=== PATIENT | male | born 1935 | race Caucasian/White ===

== ENCOUNTER 2018-04-26 09:11 | Inpatient (IN) ==
--- NOTE | 2018-04-26 09:25 | Emergency Department Report ---
General Adult HPI - General Chief complaint: Medical Emergency Stated complaint: blood in stools Time Seen by Provider: 04/26/18 09:23 Source: patient Mode of arrival: ambulatory Limitations: no limitations - History of Present Illness HPI narrative: 83 M presents to the emergency department with a chief complaint of dark tarry stools. Patient noted onset of dark tarry stools on Saturday of this past week. He denies any current pain or discomfort. He does not feeling slightly lightheaded. Patient was at home when his symptoms began. Symptoms have been persistent in nature since onset. No other complaints or associated symptoms at this time. Patient is unsure of the date of his last colonoscopy/EGD. He does note that he is anticoagulated on Coumadin for atrial fibrillation. - Related Data Home Medications Medication Instructions Recorded Confirmed Warfarin Sodium 3 mg PO DAILY #0 05/09/16 04/26/18 aspirin 81 mg tablet,delayed 81 mg PO DAILY tab 06/05/17 04/26/18 release Bisoprolol [Zebeta] 5 mg PO HS 04/26/18 04/26/18 Docusate Sodium [Stool Softener] 200 mg PO PRN 04/26/18 04/26/18 Lactobacillus Acidophilus 1 cap PO DAILY 04/26/18 04/26/18 [Probiotic] PEG 3350 17gm PACKET [Miralax] 17 gm PO PRN 04/26/18 04/26/18 Allergies Allergy/AdvReac Type Severity Reaction Status Date / Time Penicillins Allergy Intermediate SWELLING Verified 04/26/18 10:06 alcohol AdvReac Unknown RECOVERING Verified 04/26/18 10:06 ALCOHOLIC Review of Systems Constitutional: Denies: fever, chills Eyes: Denies: eye pain, vision change ENT: Denies: ear pain, throat pain Cardiovascular: Denies: chest pain, palpitations Respiratory: Denies: cough, dyspnea Gastrointestinal: Denies: abdominal pain, nausea, vomiting, diarrhea Genitourinary: Denies: urgency, dysuria Musculoskeletal: Denies: back pain, arthralgia Integumentary: Denies: erythema, rash Neurological: Denies: headache, numbness, paresthesias Psychiatric: Denies: anxiety, depression Endocrine: Denies: polydipsia, polyuria Hematological/Lymphatic: Denies: easy bruising, lymphadenopathy Allergic/Immunologic: Denies: facial swelling, urticaria PFSH Patient Stated Medical History Cataracts Yes Glaucoma Yes Cardiac Arrhythmia Yes: a-fib Congestive Heart Failure Yes Hypertension Yes Valvular Heart Disease Yes: AORTIC STENOSIS, MITRAL VALVE PROLAPSE Sleep Apnea Yes Other GI Yes: CONSTIPATION/DIARRHEA Clotting Problems Yes: ON COUMADIN Surgical History: heart surgery. colonoscopy Family History: Family History (Last Updated 06/05/17 @ 11:59 by Laurel Floyd [facility]) Father Pneumonia Mother Stroke Sister No known health problems Brother Heart disease - Social History Smoking status: Never smoker Substance use type: does not use Alcohol intake frequency: former alcohol drinker Physical Exam - Limitations Limitations: no limitations - General General appearance: alert, in no apparent distress - Normal Exams: Head:: Normocephalic without trauma Eyes:: Pupils are PERRLA w/ EOMI, No scleral icterus, irritation, or foreign bodies noted ENMT:: No facial trauma, nasal exudates, pharyngeal erythema, or exudates are noted Dental: No fractured, loose, or missing teeth noted Neck:: Full range of motion, without adenopathy, JVD, bruits or thyromegaly Chest/Respirations:: Clear all day, with good airflow, and symmetry bilaterally Cardiovascular:: Regular rate and rhythm, without murmur or gallop, Pulses 2+ all extremities, capillary refill, <2 seconds all extremities Abdomen:: Bowel sounds positive, soft, non-tender, non-distended, no hepatosplenomegaly, masses or bruits noted Lymphatic:: No lymphadenopathy, or lymphedema noted Musculoskeletal:: No tenderness, or deformity noted, good range of motion, all extremities Integumentary:: No rashes, hives, or bruising noted, hair and nails, without abnormality Neurological:: Patient is alert, and oriented, cranial nerves, motor/sensory/ cerebellar, exams w/o gross deficits, to observation Psychiatric:: Patient exhibits, appropriate attention, emotion and affect Course Vital Signs Temperature 98.4 F 04/26/18 09:13 Pulse Rate 101 H 04/26/18 09:13 Respiratory Rate 20 04/26/18 09:13 Blood Pressure 149/79 H 04/26/18 09:13 Pulse Oximetry 98 04/26/18 09:13 Temperature 97.6 F 04/26/18 16:26 Pulse Rate 74 04/26/18 19:00 Respiratory Rate 12 04/26/18 16:26 Blood Pressure 127/66 04/26/18 16:26 Pulse Oximetry 98 04/26/18 16:26 Medical Decision Making - [facility] Narrative Medical decision making narrative: Patient is subtherapeutic on his INR. Labs were discussed in detail with the patient and questions are answered. Patient is given 500 mL normal saline intravenously times one. He is given Protonix 40 mg IV times one. Due to the patient being anticoagulated on Coumadin and upper GI bleeding he will be admitted to the service of the hospitalist for further evaluation and treatment. Patient is in agreement with the current plan of management. Patient is discussed with the hospitalist Dr. Mcbride and will be admitted to his service in improved condition. No further orders from accepting physician who is in agreement with the current plan of management. - Differential Diagnosis upper GI bleed, lower GI bleed, metabolic disorder, anemia - Lab Data Result diagrams: 04/26/18 15:41 04/26/18 09:54 Lab Results 04/26/18 04/26/18 04/26/18 Range/Units 09:49 09:54 09:54 WBC 8.3 (4.5-11.0) T/MM3 RBC 3.39 L (4.50-5.90) M/MM3 Hgb 10.8 L (13.5-17.5) GM/DL Hct 32.8 L (41-53) % MCV 96.8 (80-100) UM3 MCH 31.9 (26-34) UUG MCHC 32.9 (31-37) GM/DL RDW Std Deviation 46.7 (36.9-50.2) FL Plt Count 166 (130-400) T/MM3 MPV 10.7 (9.4-12.4) UM3 Immature Gran % (Auto) 0.4 (0.0-0.5) % Neut % (Auto) 70.0 H (33-66) % Lymph % (Auto) 20.6 L (23-45) % Edwards % (Auto) 6.4 (0-9.0) % Eos % (Auto) 2.2 (0-4) % Baso % (Auto) 0.4 (0-2) % Neut # (Auto) 5.8 (1.8-7.7) T/MM3 Lymph # (Auto) 1.7 (1-4.8) T/MM3 Edwards # (Auto) 0.5 (0-0.8) T/MM3 Eos # (Auto) 0.2 (0-0.5) T/MM3 Baso # (Auto) 0.0 (0-0.2) T/MM3 Abs Immat Gran (auto) 0.03 (0.00-0.03) T/MM3 INR (0.92-1.18) APTT (24-36) SEC Turbidity < 20 (0-20) Sodium 142 (136-146) MEQ/L Potassium 4.1 (3.6-5) MEQ/L Chloride 109 H (98-107) MEQ/L Carbon Dioxide 24 (22-30) MEQ/L Anion Gap 9 (5-15) meq/L BUN 18.0 (9-20) MG/DL Creatinine 0.7 L (0.8-1.5) mg/dL Estimated Creat Clear 69 (>50) mL/min GFR Calculation 107 (>60) mL/min BUN/Creatinine Ratio 26 (6-26) RATIO Glucose 95 (75-110) MG/DL Calculated Osmolality 275 (261-280) MOSM/KG Calcium 9.4 (8.4-10.2) MG/DL Total Bilirubin 0.40 (0.20-1.30) MG/DL Icterus Index < 2 (0-7) AST 20 (17-59) U/L ALT 15 (1-50) U/L Alkaline Phosphatase 52 (38-126) U/L Troponin I < 0.012 (0-0.12) ng/ml Total Protein 6.7 (6.3-8.2) g/dL Albumin 4.0 (3.5-5.0) g/dL Globulin 2.7 (2.4-3.6) G/DL Albumin/Globulin Ratio 1.5 (1.1-2.2) RATIO Lipase 38 (23-300) U/L Specimen Hemolysis < 15 (0-25) Ur Collection Type Urine, void-cc/notcc Urine Color Yellow (YELLOW) Urine Clarity Clear Urine pH 5.5 (5.0-8.0) Ur Specific [place] 1.015 (1.015-1.025) Urine Protein Negative (NEGATIVE) Urine Glucose (UA) Negative (NEGATIVE) Urine Ketones Negative (NEGATIVE) Urine Occult Blood Trace-intact (NEGATIVE) Urine Nitrate Negative (NEGATIVE) Urine Bilirubin Negative (NEGATIVE) Urine Urobilinogen 0.2 (NORMAL) EU/DL Ur Leukocyte Esterase Negative (NEGATIVE) Urinalysis Comment Microscopic not ind. Blood Type Antibody Screen 04/26/18 04/26/18 Range/Units 09:54 09:54 WBC (4.5-11.0) T/MM3 RBC (4.50-5.90) M/MM3 Hgb (13.5-17.5) GM/DL Hct (41-53) % MCV (80-100) UM3 MCH (26-34) UUG MCHC (31-37) GM/DL RDW Std Deviation (36.9-50.2) FL Plt Count (130-400) T/MM3 MPV (9.4-12.4) UM3 Immature Gran % (Auto) (0.0-0.5) % Neut % (Auto) (33-66) % Lymph % (Auto) (23-45) % Edwards % (Auto) (0-9.0) % Eos % (Auto) (0-4) % Baso % (Auto) (0-2) % Neut # (Auto) (1.8-7.7) T/MM3 Lymph # (Auto) (1-4.8) T/MM3 Edwards # (Auto) (0-0.8) T/MM3 Eos # (Auto) (0-0.5) T/MM3 Baso # (Auto) (0-0.2) T/MM3 Abs Immat Gran (auto) (0.00-0.03) T/MM3 INR 1.92 H (0.92-1.18) APTT 34.3 (24-36) SEC Turbidity (0-20) Sodium (136-146) MEQ/L Potassium (3.6-5) MEQ/L Chloride (98-107) MEQ/L Carbon Dioxide (22-30) MEQ/L Anion Gap (5-15) meq/L BUN (9-20) MG/DL Creatinine (0.8-1.5) mg/dL Estimated Creat Clear (>50) mL/min GFR Calculation (>60) mL/min BUN/Creatinine Ratio (6-26) RATIO Glucose (75-110) MG/DL Calculated Osmolality (261-280) MOSM/KG Calcium (8.4-10.2) MG/DL Total Bilirubin (0.20-1.30) MG/DL Icterus Index (0-7) AST (17-59) U/L ALT (1-50) U/L Alkaline Phosphatase (38-126) U/L Troponin I (0-0.12) ng/ml Total Protein (6.3-8.2) g/dL Albumin (3.5-5.0) g/dL Globulin (2.4-3.6) G/DL Albumin/Globulin Ratio (1.1-2.2) RATIO Lipase (23-300) U/L Specimen Hemolysis (0-25) Ur Collection Type Urine Color (YELLOW) Urine Clarity Urine pH (5.0-8.0) Ur Specific [place] (1.015-1.025) Urine Protein (NEGATIVE) Urine Glucose (UA) (NEGATIVE) Urine Ketones (NEGATIVE) Urine Occult Blood (NEGATIVE) Urine Nitrate (NEGATIVE) Urine Bilirubin (NEGATIVE) Urine Urobilinogen (NORMAL) EU/DL Ur Leukocyte Esterase (NEGATIVE) Urinalysis Comment Blood Type O Positive Antibody Screen Negative - EKG Data EKG #1 EKG results narrative: Atrial fibrillation. 91 bpm. No STEMI. Disposition Clinical Impression: GI bleed Qualifiers: GI bleed type/associated pathology: unspecified gastrointestinal hemorrhage type Qualified Code(s): K92.2 - Gastrointestinal hemorrhage, unspecified Disposition: 02 To [facility] Acute Care Condition: Stable Time of Disposition: 10:32 (Admit. Dr. Mcbride. ) - Seen By: physician
--- OUTSIDE RECORDS SUMMARY | 2018-04-26 09:34 | External Medical Summary | Referral Summary ---
:1935 Author Organization [facility] Address [address] [place] [address] Care Team Providers Name Role Phone Angelina Giron Primary Care Physician Encounter [facility] [id number] Date(s): 11/27/16 - 11/27/16 [facility] [address] [place] [address] Discharge Disposition: 01-Home or Self Care Attending Physician: Fracisco Mclean MD Vital Signs No data available for this section Problem List Condition Effective Dates Status Health Status Informant Acute pain(Confirmed) Active PAF (paroxysmal atrial Active fibrillation)(Confirmed) Aortic stenosis(Confirmed) Active At risk of pressure sore(Confirmed) Active Glaucoma(Confirmed) Active Hypertension(Confirmed) Active Obesity(Confirmed) Active patient HECTOR (obstructive sleep Active apnea)(Confirmed) Degenerative arthritis(Confirmed) Active Tissue perfusion Active alteration(Confirmed)1 1Problem added automatically by system based on initiation of Tissue Perfusion Cerebral Plan of Care Allergies, Adverse Reactions, Alerts Substance Reaction Severity Status penicillins Active Medications aspirin 81 mg oral tablet 81 mg 1 tabs, Oral, Daily, # 30 tabs, 0 Refill(s) Start Date: 10/31/16 Status: Orderedbisoprolol 5 mg, Oral, Daily, 0 Refill(s) Start Date: 10/09/16 Status: Orderedfurosemide 20 mg oral tablet 20 mg 1 tabs, Oral, Daily, # 30 tabs, 5 Refill(s) Start Date: 11/02/16 Status: OrderedPlavix 75 mg oral tablet 75 mg 1 tabs, Oral, Daily, # 30 tabs, 5 Refill(s) Start Date: 11/02/16 Status: Orderedsimvastatin 10 mg oral tablet 10 mg 1 tabs, Oral, Bedtime (once a day), # 30 tabs, 5 Refill(s) Start Date: 11/02/16 Status: Orderedwarfarin 3 mg, Oral, Daily, 0 Refill(s) Start Date: 10/09/16 Status: Orderedwarfarin 6 mg, Oral, Mon/We/Fr, 0 Refill(s) Start Date: 10/09/16 Status: Ordered Results No data available for this section Immunizations No data available for this section Procedures Procedure Date Related Diagnosis Body Site Replacement Aortic Valve Transcatheter 10/31/16 Transfemoral Approach1 Transesophageal echocardiogram2 07/17/16 Cardiac catheterization 05/09/16 Cataract extraction Colonoscopy History of colon resection 1auto-populated from documented surgical [id number] 45-50%, mild MR, mild to mod w/ ZULEIKA 1.2-1.3 Social History Social History Type Response Smoking Status Former smoker; Number of years: 49 Assessment and Plan Extracted from: Title: Office Visit Note Author: Fracisco Mclean MD Date: 11/27/16 Assessment/Plan 1. 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 Atrial fibrillation. On Warfarin therapy as directed by primary care physician. 3. Nonischemic cardiomyopathy and systolic congestive heart failure -LVEF 50% per 2D Echo Sep 2016 -Heart catheterization in April 2016 did not reveal any evidence of obstructive coronary artery disease. 4. Hypertension: controlled 5. History of tobacco abuse, quitting in 1969. 6. Obstructive sleep apnea. Noncompliant with CPAP use. 7. Thyroid goiter per CTA chest/thyroid US Sep 2016 will refer to steven again from clinic
--- OUTSIDE RECORDS SUMMARY | 2018-04-26 09:34 | External Medical Summary | Referral Summary ---
:1935 Author Organization [facility] Address [address] [place] [address] Care Team Providers Name Role Phone Bree Angelina Primary Care Physician Encounter [facility] [id number] Date(s): 11/22/16 - 11/22/16 [facility] [address] [place] [address] [phone] Discharge Disposition: 01-Home or Self Care Attending Physician: Fracisco Mclean MD Admitting Physician: Fracisco Mclean MD Vital Signs Most recent to oldest [Reference Range]: 1 Peripheral Pulse Rate [60-100 bpm] 82 bpm (11/22/16 1:06 PM) Respiratory Rate [14-20 br/min] 16 br/min (11/22/16 1:06 PM) Blood Pressure [90-140/60-90 mmHg] 135/69 mmHg (11/22/16 1:06 PM) SpO2 96 % (11/22/16 1:06 PM) Problem List Condition Effective Dates Status Health [...] Date: 10/09/16 Status: Orderedwarfarin 6 mg, Oral, Sat//, 0 Refill(s) Start Date: 10/09/16 Status: Ordered Results Hematology Most recent to oldest [Reference Range]: 1 WBC [4.8-10.8 10*3/uL] 7.0 10*3/uL (11/22/16 1:36 PM) RBC [4.60-6.20] 4.18 *LOW* (11/22/16 1:36 PM) Hgb [14.0-18.0 gm/dL] 13.4 gm/dL *LOW* (11/22/16 1:36 PM) Hct [42.0-52.0 %] 40.2 % *LOW* (11/22/16 1:36 PM) MCV [82.0-99.0 fL] 96.2 fL (11/22/16 1:36 PM) MCH [27.0-32.0 pg] 32.1 pg *HI* (11/22/16 1:36 PM) MCHC [32.0-36.0 gm/dL] 33.3 gm/dL (11/22/16 1:36 PM) RDW [11.5-14.5 %] 13.6 % (11/22/16 1:36 PM) Platelet [150-400 10*3/uL] 163 10*3/uL (11/22/16 1:36 PM) MPV [9.4-12.3 fL] 10.7 fL (11/22/16 1:36 PM) Coagulation Most recent to oldest [Reference Range]: 1 INR [0.9-1.2] 2.8 *HI* (11/22/16 1:36 PM) Chemistry Most recent to oldest [Reference Range]: 1 Sodium Lvl [136-144 mEq/L] 138 mEq/L (11/22/16 1:36 PM) Potassium Lvl [3.6-5.1 mEq/L] 4.6 mEq/L (11/22/16 1:36 PM) Chloride [99-109 mEq/L] 108 mEq/L (11/22/16 1:36 PM) CO2 [22-32 mEq/L] 23 mEq/L (11/22/16 1:36 PM) AGAP [3-20] 7 (11/22/16 1:36 PM) BUN [4-20 mg/dL] 24 mg/dL *HI* (11/22/16 1:36 PM) Glucose Lvl [70-100 mg/dL] 95 mg/dL (11/22/16 1:36 PM) Creatinine Lvl [0.64-1.27 mg/dL] 0.76 mg/dL (11/22/16 1:36 PM) eGFR [>60] >60 1 (11/22/16 1:36 PM) Calcium Lvl [8.6-10.0 mg/dL] 9.9 mg/dL (11/22/16 1:36 PM) 1Result Comment: Multiply eGFR results by 1.21 for race. Immunizations No data available for this section Procedures Procedure Date Related Diagnosis Body Site Replacement Aortic Valve Transcatheter 10/31/16 Transfemoral Approach1 Transesophageal echocardiogram2 07/17/16 Cardiac catheterization 05/09/16 Cataract extraction Colonoscopy History of colon resection 1auto-populated from documented surgical orpr2IX 45-50%, mild MR, mild to mod w/ ZULEIKA 1.2-1.3 Social History Social History Type Response Smoking Status Former smoker; Number of years: 49 Assessment and Plan Extracted from: Title: kccq-12 Author: Julia Torres RN Date: 11/22/16 [place] Cardiomyopathy Questionnaire (KCCQ-12) The following questions refer to your heart failure and how it may affect your life. Please read and complete the following questions. There are no right or wrong answers. Please nani the answer that best applies to you. 1. Heart failure affects different people in different ways. Some feel shortness of breath while others feel fatigue. Please indicate how much you are limited by heart failure (shortness of breath or fa tigue) in your ability to do the following activities over the past 2 weeks. Activity Extremely Limited Quite a bit Limited Moderately Limited Slightly Limited Not at all Limited Limited for other reasons or did not do the activity (1) (2) (3) (4) (5) (6) a. Showering/bathing [ ] [ ] [ ] [ ] [ x ] [ ] b. Walking 1 block on level ground [ ] [ ] [ ] [ ] [ x ] [ ] c. Hurrying or jogging (as if to catch a bus) [ ] [ ] [ x] [ ] [ ] [ ] 2. Over the past 2 weeks, how many times did you have swelling in your feet, ankles or legs when you woke up in the morning? Every morning 3 or more times per week but not every day 1-2 times per week Less than once a week Never over the past 2 weeks (1) (2) (3) (4) (5) [ ] [ ] [ ] [ ] [ x] 3. Over the past 2 weeks, on average, how many times has fatigue limited your ability to do what you wanted? All of the time Several times per day At least once a day 3 or more times per week but not every day 1-2 times per week Less than once a week Never over the past 2 weeks (1) (2) (3) (4) (5) (6) (7) [ ] [ ] [ ] [ ] [ ] [ ] [ x ] 4. Over the past 2 weeks, on average, how many times has shortness of breath limited your ability to do what you wanted? All of the time Several times per day At least once a day 3 or more times per week but not every day 1-2 times per week Less than once a week Never over the past 2 weeks (1) (2) (3) (4) (5) (6) (7) [ ] [ ] [ ] [ ] [ ] [ ] [ x ] 5. Over the past 2 weeks, on average, how many times have you been forced to sleep sitting up in a chair or with at least 3 pillows to prop you up because of shortness of breath? Every night 3 or more times per week but not every day 1-2 times per week Less than once a week Never over the past 2 weeks (1) (2) (3) (4) (5) [ ] [ ] [ ] [ ] [ x ] 6. Over the past 2 weeks, how much has your heart failure limited your enjoyment of life? It has extremely limited my enjoyment of life It has limited my enjoyment of life quite a bit It has moderately limited my enjoyment of life It has slightly limited my enjoyment of life It has not limited my enjoyment of life at all (1) (2) (3) (4) (5) [ ] [ ] [ x ] [ ] [ ] 7. If you had to spend the rest of your life with your heart failure the way it is right now, how would you feel about this? Not at all satisfied Mostly dissatisfied Somewhat satisfied Mostly satisfied Completely satisfied (1) (2) (3) (4) (5) [ ] [ ] [ ] [ x ] [ ] 8. How much does your heart failure affect your lifestyle? Please indicate how your heart failure may have limited your participation in the following activities over the past 2 weeks. Activity Severely Limited Limited quite a bit Moderately limited Slightly limited Did not limit at all Does not apply or did not do for other reasons (1) (2) (3) (4) (5) (6) a. Hobbies, recreational activities [ ] [ ] [ ] [ ] [ x] [ ] b. Working or doing set up mechanic automatic line [ ] [ ] [ ] [ ] [ x] [ ] c. Visiting family or friends out of your home [ ] [ ] [ ] [ ] [ x ] [ ]
--- OUTSIDE RECORDS SUMMARY | 2018-04-26 09:34 | External Medical Summary | Referral Summary ---
:1935 Author Organization [facility] Address [address] [place] [address] Care Team Providers Name Role Phone Angelina Giron Primary Care Physician Encounter [facility] [id number] Date(s): 10/30/17 - 10/30/17 [facility] [address] [place] [address] Discharge Disposition: 01-Home or Self Care Attending Physician: Fracisco Mclean MD Vital Signs Most recent to oldest [Reference Range]: 1 Peripheral Pulse Rate [60-100 bpm] 88 bpm (10/30/17 11:43 AM) Respiratory Rate [14-20 br/min] 16 br/min (10/30/17 11:43 AM) Blood Pressure [90-140/60-90 mmHg] 147/86 mmHg *HI* (10/30/17 11:43 AM) SpO2 97 % (10/30/17 11:43 AM) Problem List Condition Effective Dates Status Health [...] 0 Refill(s) Start Date: 10/09/16 Status: Orderedwarfarin 3 mg, Oral, Daily, 0 Refill(s) Start Date: 10/09/16 Status: Orderedwarfarin 6 mg, Oral, Mon/We/Fr, 0 Refill(s) Start Date: 10/09/16 Status: Ordered Results Hematology Most recent to oldest [Reference Range]: 1 WBC [4.8-10.8 10*3/uL] 6.1 10*3/uL (10/30/17 11:46 AM) RBC [4.60-6.20] 4.23 *LOW* (10/30/17 11:46 AM) Hgb [14.0-18.0 gm/dL] 13.4 gm/dL *LOW* (10/30/17 11:46 AM) Hct [42.0-52.0 %] 40.7 % *LOW* (10/30/17 11:46 AM) MCV [82.0-99.0 fL] 96.2 fL (10/30/17 11:46 AM) MCH [27.0-32.0 pg] 31.7 pg (10/30/17 11:46 AM) MCHC [32.0-36.0 gm/dL] 32.9 gm/dL (10/30/17 11:46 AM) RDW [11.5-14.5 %] 13.7 % (10/30/17 11:46 AM) Platelet [150-400 10*3/uL] 170 10*3/uL (10/30/17 11:46 AM) MPV [9.4-12.3 fL] 10.5 fL (10/30/17 11:46 AM) Chemistry Most recent to oldest [Reference Range]: 1 Sodium Lvl [136-144 mEq/L] 140 mEq/L (10/30/17 11:46 AM) Potassium Lvl [3.6-5.1 mEq/L] 4.6 mEq/L (10/30/17 11:46 AM) Chloride [99-109 mEq/L] 105 mEq/L (10/30/17 11:46 AM) CO2 [22-32 mEq/L] 26 mEq/L (10/30/17 11:46 AM) AGAP [3-20 mEq/L] 9 mEq/L (10/30/17 11:46 AM) BUN [4-20 mg/dL] 18 mg/dL (10/30/17 11:46 AM) Glucose Lvl [70-100 mg/dL] 103 mg/dL *HI* (10/30/17 11:46 AM) Creatinine Lvl [0.64-1.27 mg/dL] 0.80 mg/dL (10/30/17 11:46 AM) eGFR [>60 mL/min] >60 mL/min 1 (10/30/17 11:46 AM) Calcium Lvl [8.6-10.0 mg/dL] 9.7 mg/dL (10/30/17 11:46 AM) 1Result Comment: Multiply eGFR results by 1.21 for race. Procedures Procedure Date Related Diagnosis Body Site Status Replacement Aortic Valve Transcatheter 10/31/16 Completed Transfemoral Approach1 Transesophageal echocardiogram2 07/17/16 Completed Cardiac catheterization 05/09/16 Completed Cataract extraction Completed Colonoscopy Completed History of colon resection Completed 1auto-populated from documented surgical [id number] 45-50%, mild MR, mild to mod w/ [id number] 1.2-1.3 Social History Social History Type Response Smoking Status Former smoker; Number of years: 49; entered on: 10/30/16 Assessment and Plan Extracted from: Title: Office Visit Note Author: Fracisco Mclean MD Date: 10/30/17 1. 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 Showering/bathing O O O O Ox O b. Walking 1 block on level ground O Ox O O O O c. Hurrying or jogging (as if to catch a bus) O Ox O O O O 1 2 3 4 5 6 2. Over the past 2 weeks, how many times did you have swelling in your feet, ankles or legs when you woke up in the morning? Every morning 3 or more times per week but not every day 1-2 times per week Less than once a week Never over the past 2 weeks O O O O Ox 1 2 3 4 5 3. Over the past 2 weeks, on average, how many times has fatigue limited your ability to do what you wanted? All of the time Several times per day At least once a day 3 or more times per week but not every day 1-2 times per week Less than once a week Never over the past 2 weeks O O O O O O Ox 1 2 3 4 5 6 7 4. Over the past 2 weeks, on average, how many times has shortness of breath limited your ability to do what you wanted? All of the time Several times per day At least once a day 3 or more times per week but not every day 1-2 times per week Less than once a week Never over the past 2 weeks O Ox O O O O O 1 2 3 4 5 6 7 5. Over the past 2 weeks, on [...] week Never over the past 2 weeks O O O O Ox 1 2 3 4 5 6. Over the past 2 weeks, how much has your heart failure limited your enjoyment of life? It has extremely limited my enjoyment of life It has limited my enjoyment of life quite a bit It has moderately limited my enjoyment of life It has slightly limited my enjoyment of life It has not limited my enjoyment of life at all O O Ox O O 1 2 3 4 5 7. If you had to spend the rest of your life with your heart failure the way it is right now, how would you feel about this? Not at all satisfied Mostly dissatisfied Somewhat satisfied Mostly satisfied Completely satisfied O O Ox O O 1 2 3 4 5 8. How much does your heart failure affect your lifestyle? Please indicate how your heart failure may have limited your participation in the following activities over the past 2 weeks. Activity Severely Limited Limited quite a bit Moderately limited Slightly limited Did not limit at all Does not apply or did not do for other reasons a. 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 Visiting family or friends out of your home O O O Ox O O 1 2 3 4 5 6
--- OUTSIDE RECORDS SUMMARY | 2018-04-26 09:35 | External Medical Summary | Continuity of Care Document ---
:1935 Author Organization [facility] Allergies Active Description Code Type Severity Reaction Onset Reported/ Identified Relationship Clinical to Patient Status Yes PCN Drug N/A N/A Aller gy Yes alcohol AdvRe Unknown RECOVERIN 05/09/2016 ac G ALCOHOLIC Yes Aliphatic alcoh AdvRe Unknown RECOVERIN 05/09/2016 Alcohols ol ac G ALCOHOLIC Yes Penicillins Penic Aller I SWELLING 05/09/2016 illin gy s Yes penicillins NKMA N/A N/A 10/09/2016 Medications Medication Packaging Start Date Stop Date Route Dosage Sig 10/09/2016 Oral 3 mg 3 warfarin(warfar mg, Oral, Daily, in) 0 Refill(s) 10/09/2016 Oral 6 mg 6 warfarin(warfar mg, Oral, in) Mon//Fr, 0 Refill(s) 1,000 mL 10/16/2016 IV 100 Sodium Chloride 7 mL/hr, IV 0.9%(Sodium Chloride 0.9% 1,000 mL) 5 mL 10/16/2016 IV Push 5 mg 5 metoprolol(meto 7 mg=5 mL, IV prolol tartrate Push, Once 1 mg/mL injectable solution) 5 mL 10/16/2016 IV Push 5 mg 5 metoprolol(meto 7 mg=5 mL, IV prolol tartrate Push, Once 1 mg/mL injectable solution) 10/30/2016 Oral 30 mg 30 oseltamivir(Rolno 7 mg, Oral, BID, 0 iflu) Refill(s) 1 tabs 10/31/2016 Oral 81 mg 81 aspirin(aspirin mg=1 tabs, Oral, 81 mg oral Daily, 30 tabs, tablet) 0 Refill(s) 10/31/2016 IV Push 12.5 mg 12.5 fentaNYL(fentaN 7 mg, IV Push, YL) Once 1 mL 10/31/2016 IV Push 2 mg 2 morphine(morphi 7 mg=1 mL, IV ne) Push, q2hr, PRN: Pain Severe (7-10) 2 mL 10/31/2016 IV Push 4 mg 4 ondansetron(Zof 7 mg=2 mL, IV ran) Push, q6hr, PRN: Nausea or Vomiting 0.5 mL 10/31/2016 IV Push 25 mg 25 diphenhydrAMINE 7 mg=0.5 mL, IV (Benadryl) Push, q6hr, PRN: Rash 1,000 mL 10/31/2016 IV 75 Sodium Chloride 7 mL/hr, IV 0.9%(Sodium Chloride 0.9% 1,000 mL) 1 tabs 10/31/2016 Oral 75 mg 75 clopidogrel(Tarah 7 mg=1 tabs, Oral, vix) Daily 2 tabs 10/31/2016 Oral 650 mg 650 acetaminophen(a 7 mg=2 tabs, Oral, cetaminophen) q4hr, PRN: Pain Mild (1-3) 5 mL 10/31/2016 IV Push 0.5 mg 0.5 atropine(atropi 7 mg=5 mL, IV ne) Push, q12hr, PRN: Bradycardia 1 tabs 10/31/2016 Oral 81 mg 81 aspirin(aspirin 7 mg=1 tabs, Oral, ) Daily 1 tabs 11/01/2016 Oral 3 mg 3 warfarin(Coumad 7 mg=1 tabs, Oral, in) Once 1 tabs 11/02/2016 Oral 75 mg 75 clopidogrel(Tarah mg=1 tabs, Oral, vix 75 mg oral Daily, 30 tabs, tablet) 5 Refill(s) 1 tabs 11/02/2016 Oral 10 mg 10 simvastatin(sim mg=1 tabs, Oral, vastatin 10 mg Bedtime (once a oral tablet) day), 30 tabs, 5 Refill(s) 1 tabs 11/02/2016 Oral 20 mg 20 furosemide(furo mg=1 tabs, Oral, semide 20 mg Daily, 30 tabs, oral tablet) 5 Refill(s) Problems Date Dx Attending Type Code Diagnosis Diagnosed By Coded 10/11/2016 Fracisco Mclean Final G47.33 Obstructive sleep M apnea (adult) (pediatric) 10/11/2016 CaridadFracisco morales Final I11.0 Hypertensive heart M disease with heart failure 10/11/2016 CaridadFracisco morales Final I34.0 Nonrheumatic mitral M (valve) insufficiency 10/11/2016 CaridadFracisco morales Reason I35.0 Nonrheumatic aortic M (valve) stenosis 10/11/2016 CaridadFracisco morales Final I42.8 Other M cardiomyopathies 10/11/2016 CaridadFracisco morales Final I48.91 Unspecified atrial M fibrillation 10/11/2016 CaridadHector moralesem Final I50.20 Unspecified systolic M (congestive) heart failure 10/11/2016 CaridadFracisco morales Final Z79.01 halfway (current) M use of anticoagulants 10/11/2016 CaridadFracisco morales Final Z87.891 Personal history of M nicotine dependence 10/18/2016 CaridadFracisco morales Final E04.9 Nontoxic goiter, M unspecified 10/18/2016 CaridadFracisco morales Final G47.33 Obstructive sleep M apnea (adult) (pediatric) 10/18/2016 CaridadFracisco morales Final I11.0 Hypertensive heart M disease with heart failure 10/18/2016 CaridadFracisco morales Reason I35.0 Nonrheumatic aortic M (valve) stenosis 10/18/2016 Fracisco Mclean Final I42.9 Cardiomyopathy, M unspecified 10/18/2016 CaridadFracisco morales Final I48.0 Paroxysmal atrial M fibrillation 10/18/2016 CaridadFracisco morales Final I50.22 Chronic systolic M (congestive) heart failure 10/18/2016 CaridadFracisco morales Final I70.0 Atherosclerosis of M aorta 10/18/2016 CaridadFracisco morales Final N20.0 Calculus of kidney M 10/18/2016 CaridadFracisco morales 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 10/18/2016 Fracisco Mclean Final Z79.899 Other regional intermodal truck driver M (current) drug therapy 10/18/2016 Fracisco Mclean Final Z87.891 Personal history of M nicotine dependence 10/26/2016 Melida WATT, Z01.810 Encounter for Fei Leon preprocedural cardiovascular examination 10/29/2016 Melida WATT, Z01.810 Encounter for Fei Leon Harry Miller preprocedural cardiovascular examination 11/02/2016 Fracisco Mclean Final E04.9 Nontoxic goiter, M unspecified 11/02/2016 Fracisco Mclean Final G47.33 Obstructive sleep M apnea (adult) (pediatric) 11/02/2016 Fracisco Mclean Final H40.9 Unspecified glaucoma M 11/02/2016 Fracisco Mclean Final I11.9 Hypertensive heart M disease without heart failure 11/02/2016 Fracisco Mclean Final I35.0 Nonrheumatic aortic M (valve) stenosis 11/02/2016 Fracisco Mclean Final I48.0 Paroxysmal atrial M fibrillation 11/02/2016 Fracisco Mclean Final Z01.810 Encounter for M preprocedural cardiovascular examination 11/02/2016 Fracisco Mclean Final Z01.812 Encounter for M preprocedural laboratory examination 11/02/2016 Fracisco Mclean Reason Z01.818 Encounter for other M preprocedural examination 11/02/2016 Fracisco Mclean 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 11/02/2016 Fracisco Mclean Final Z79.899 Other regional intermodal truck driver M (current) drug therapy 11/02/2016 Fracisco Mclean Final Z87.891 Personal history of M nicotine dependence 11/04/2016 Fracisco Mclean Final E04.1 Nontoxic single M thyroid nodule 11/04/2016 Fracisco Mclean Final G47.33 Obstructive sleep M apnea (adult) (pediatric) 11/04/2016 Fracisco Mclean Final H40.9 Unspecified glaucoma M 11/04/2016 Fracisco Mclean Final I11.0 Hypertensive heart M disease with heart failure 11/04/2016 Fracisco Mclean Admitting I35.0 Nonrheumatic aortic M (valve) stenosis 11/04/2016 Fracisco Mclean Final I42.9 Cardiomyopathy, M unspecified 11/04/2016 Fracisco Mclean Final I48.91 Unspecified atrial M fibrillation 11/04/2016 Fracisco Mclean Final I50.22 Chronic systolic M (congestive) heart failure 11/04/2016 Fracisco Mclean Final M43.10 Spondylolisthesis, M site unspecified 11/04/2016 Fracisco Mclean Final Z00.6 Encounter for M examination for normal comparison and control in clinical res 11/04/2016 Fracisco Mclean Final Z91.19 Patient''s M noncompliance with other medical treatment and regimen 11/04/2016 Fracisco Mclean Final I35.0 Nonrheumatic aortic M (valve) stenosis 11/26/2016 Melida WATT, I35.0 Nonrheumatic aortic Harry Montez MD E (valve) stenosis Harry E 11/26/2016 Melida WATT, Z00.6 Encounter for Harry Montez MD examination for Harry E normal comparison and control in clinical research program 11/26/2016 Fracisco Mclean Final I34.0 Nonrheumatic mitral M (valve) insufficiency 11/26/2016 Fracisco Mclean Reason I35.0 Nonrheumatic aortic M (valve) stenosis 11/26/2016 Fracisco Mclean Final Z00.6 Encounter for M examination for normal comparison and control in clinical res 11/26/2016 Fracisco Mclean Final Z48.812 Encounter for M surgical aftercare following surgery on the circulatory syste 11/26/2016 Fracisco Mclean Final 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 11/27/2016 Melida WATT, I35.0 Nonrheumatic aortic Harry Montez MD E (valve) stenosis Harry E 11/27/2016 Melida WATT, Z00.6 Encounter for Harry Montez MD examination for Harry E normal comparison and control in clinical research program 12/05/2016 Fracisco Mclena Final E04.9 Nontoxic goiter, M unspecified 12/05/2016 Fracisco Mclean Final G47.33 Obstructive sleep M apnea (adult) (pediatric) 12/05/2016 Fracisco Mclean Final I11.0 Hypertensive heart M disease with heart failure 12/05/2016 Fracisco Mclean Final I42.8 Other M cardiomyopathies 12/05/2016 Fracisco Mclean Final I48.0 Paroxysmal atrial M fibrillation 12/05/2016 Fracisco Mclean Final I50.20 Unspecified systolic M (congestive) heart failure 12/05/2016 Fracisco Mclean Final Z00.6 Encounter for M examination for normal comparison and control in clinical res 12/05/2016 Fracisco Mclean Reason Z48.812 Encounter for M surgical aftercare following surgery on the circulatory syste 12/05/2016 Fracisco Mclean 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 12/05/2016 Fracisco Mclean Final Z79.02 regional intermodal truck driver (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 use of antithrombotics/antip latelets 12/05/2016 Fracisco Mclean Final Z79.82 regional intermodal truck driver (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 use of aspirin 12/05/2016 Fracisco Mclean Final Z87.891 Personal history of M nicotine dependence 12/05/2016 Fracisco Mclean Final Z91.19 Patient''s M noncompliance with other medical treatment and regimen 12/05/2016 Fracisco Mclean Final 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 11/01/2017 Fracisco Mclean Final 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 tricuspid (valve) insufficiency 11/01/2017 Fracisco Mclean Final I48.91 Unspecified atrial M fibrillation 11/01/2017 Fracisco Mclean Final Z00.6 Encounter for M examination for normal comparison and control in clinical res 11/01/2017 Fracisco Mclean Final Z09 Encounter for M follow-up examination after completed treatment for condition 11/01/2017 Fracisco Mclean Final 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 Procedures Code Description [place] [id number] Duplex scan Edward, Fei P 10/26/2016 of extracranial arteries; complete bilateral study Dilation of 11/01/2016 [id number] Aortic Valve, Percutaneous Approach [id number] Transcatheter Harry Montez MD 11/26/2016 aortic valve replacement TAVR/EVAN with prosthetic valve/[place] [address] TranscHarry Thomas MD 12/31/2016 aortic valve replacement TAVR/EVAN with prosthetic [place] [id number] Duplex scan Fei Leon P 12/31/2016 of extracranial arteries; complete bilateral study Results Test Result Range L100.0050 - 05/09/16 06:54 WBC - WHITE BLOOD COUNT 6.7 T/MM3 4.5-11.0 RED BLOOD COUNT 3.97 M/MM3 4.50-5.90 HGB - HEMOGLOBIN 12.7 GM/DL 13.5-17.5 HCT - HEMATOCRIT 38.4 % 41-53 MEAN CORPUSCULAR VOLUME 96.7 UM3 80-100 MEAN CORPUSCULAR HGB 32.0 UUG 26-34 MEAN CORPUSCULAR HGB CONC(MCHC 33.1 GM/DL 31-37 RDW STANDARD DEVIATION 45.6 FL 36.9-50.2 PLT - PLATELET COUNT 187 T/MM3 130-400 MEAN PLATELET VOLUME 11.1 UM3 9.4-12.4 NEUTROPHILS % (AUTO) 69.3 % 33-66 LYMPHOCYTES % (AUTO) 20.7 % 23-45 MONOCYTES % (AUTO) 6.5 % 0-9.0 EOSINOPHILS % (AUTO) 3.1 % 0-4 BASOPHILS % (AUTO) 0.3 % 0-2 IMMATURE GRANULOCYTE % (AUTO) 0.1 % 0.0-0.5 NEUTROPHILS # (AUTO) 4.7 T/MM3 1.8-7.7 LYMPHOCYTES # (AUTO) 1.4 T/MM3 1-4.8 MONOCYTES # (AUTO) 0.4 T/MM3 0-0.8 EOSINOPHILS # (AUTO) 0.2 T/MM3 0-0.5 BASOPHILS # (AUTO) 0.0 T/MM3 0-0.2 IMMATURE GRANULOCYTE # (AUTO) 0.01 T/MM3 0.00-0.03 L200.0050 - 05/09/16 06:54 ICTERUS < 2 0-7 HEMOLYSIS 129 0-25 L160.0105 - 05/09/16 06:54 INR 1.47 0.99-1.21 L400.2000 - 05/09/16 08:26 BLOOD GAS SPECIMEN TYPE PULMONARY ARTERY PH, VBG 7.392 7.31-7.41 PCO2, VBG 39.2 MMHG 40-52 PO2, VBG 57 MMHG 40-52 HCO3, VBG 24 MEQ/L 22-26 VBG TOTAL CO2 25 MEQ/L BASE EXCESS, VG -1.0 MMOL/L -2.0-2.0 OXYGEN SAT, VBG 89.0 % LABG ADM RTES ROOM AIR L400.0000 - 05/09/16 08:30 PH, ABG 7.373 7.350-7.450 PCO2, ABG 42 MMHG 34-45 PO2, ABG 71 MMHG 80-100 HCO3, ABG 24 MEQ/L 22-26 TOTAL CO2, ABG 25 MEQ/L 23-27 BASE EXCESS, ABG -1.0 MMOL/L -2.0-2.0 OXYGEN SAT, ABG 94.0 % 95.0-98.0 BLOOD GAS SPECIMEN TYPE AORTIC LABG ADM RTES ROOM AIR Basic Metabolic Panel (BMP) - 10/16/16 09:32 Anion Gap 10 NA 3-20 BUN 23 mg/dL 4-20 Calcium 10.0 mg/dL 8.6-10.0 Chloride 104 mEq/L 99-109 CO2 24 mEq/L 22-32 Creatinine 0.85 mg/dL 0.64-1.27 Glucose 103 mg/dL 70-100 Potassium 4.3 mEq/L 3.6-5.1 Sodium 138 mEq/L 136-144 eGFR - 10/16/16 09:32 eGFR >60 NA >60 TSH with Reflex Free T4 - 10/16/16 09:32 TSH with Reflex Free T4 1.83 uIU/mL 0.35-5.50 T3 Free - 10/16/16 18:04 T3 Free 3.1 pg/mL 1.7-3.7 Crossmatch Reportable for Tom - 10/31/16 10:09 Crossmatch Reportable for Tom See Transfusion NA Glucose NPT - 10/31/16 10:16 Glucose NPT 94 mg/dL 70-100 ABO and Rh - 10/31/16 10:16 ABO and Rh NA Antibody Screen - 10/31/16 10:16 Antibody Screen NA Red Blood Cells - 10/31/16 10:16 Red Blood Cells NA Activated Clotting Time NPT - 10/31/16 14:32 Activated Clotting Time NPT 136 seconds 100-146 Blood Gases Arterial NPT - 10/31/16 14:36 Arterial Glucose NPT 91 mg/dL 70-100 Base Excess Arterial NPT -1 NA 0-2 Bicarbonate Arterial NPT 24 mEq/L 22-26 Calcium Ionized Arterial NPT 1.27 mmol/L 1.19-1.41 O2 Saturation Arterial NPT 99.0 % 90.0-97.0 PCO2 Arterial NPT 41 mmHg 35-45 pH Arterial NPT 7.38 NA 7.35-7.45 PO2 Arterial NPT 170 mmHg 80-100 Potassium Arterial NPT 4.0 mEq/L 3.6-5.1 Sodium Arterial NPT 140 mEq/L 136-144 Total CO2 Arterial NPT 25 mEq/L 23-27 HCT Arterial NPT 37.0 % HGB Arterial NPT 12.6 g/dL Activated Clotting Time NPT - 10/31/16 14:39 Activated Clotting Time NPT 211 seconds 100-146 Activated Clotting Time NPT - 10/31/16 15:04 Activated Clotting Time NPT 226 seconds 100-146 Blood Gases Arterial NPT - 10/31/16 15:07 Arterial Glucose NPT 104 mg/dL 70-100 Base Excess Arterial NPT 0 NA 0-2 Bicarbonate Arterial NPT 26 mEq/L 22-26 Calcium Ionized Arterial NPT 1.31 mmol/L 1.19-1.41 O2 Saturation Arterial NPT 99.0 % 90.0-97.0 PCO2 Arterial NPT 48 mmHg 35-45 pH Arterial NPT 7.34 NA 7.35-7.45 PO2 Arterial NPT 143 mmHg 80-100 Potassium Arterial NPT 3.9 mEq/L 3.6-5.1 Sodium Arterial NPT 140 mEq/L 136-144 Total CO2 Arterial NPT 27 mEq/L 23-27 HCT Arterial NPT 38.0 % HGB Arterial NPT 12.9 g/dL Activated Clotting Time NPT - 10/31/16 15:32 Activated Clotting Time NPT 171 seconds 100-146 CBC With Platelet No Differential - 10/31/16 15:34 HCT 39.6 % 42.0-52.0 HGB 13.3 g/dL 14.0-18.0 MCH 32.0 pg 27.0-32.0 MCHC 33.6 g/dL 32.0-36.0 MCV 95.2 fL 82.0-99.0 MPV 10.0 fL 9.4-12.3 Platelet Count 226 K/uL 150-400 RBC 4.16 10*6/uL 4.60-6.20 RDW 13.2 % 11.5-14.5 WBC 10.8 K/uL 4.8-10.8 Protime (INR) - 10/31/16 15:34 INR 1.4 NA 0.9-1.2 Basic Metabolic Panel (BMP) - 10/31/16 15:34 Anion Gap 9 NA 3-20 BUN 14 mg/dL 4-20 Calcium 9.6 mg/dL 8.6-10.0 Chloride 102 mEq/L 99-109 CO2 25 mEq/L 22-32 Creatinine 0.85 mg/dL 0.64-1.27 Glucose 113 mg/dL 70-100 Potassium 3.8 mEq/L 3.6-5.1 Sodium 136 mEq/L 136-144 Magnesium - 10/31/16 15:34 Magnesium 1.9 mg/dL 1.8-2.5 eGFR - 10/31/16 15:34 eGFR >60 NA >60 PTT - 10/31/16 15:34 PTT >400.0 seconds 25.0-35.0 Activated Clotting Time - 10/31/16 15:34 Activated Clotting Time Done seconds 100-146 Activated Clotting Time NPT - 10/31/16 17:39 Activated Clotting Time NPT 139 seconds 100-146 Activated Clotting Time - 10/31/16 17:42 Activated Clotting Time Done seconds 100-146 CBC With Platelet No Differential - 11/01/16 05:13 HCT 39.7 % 42.0-52.0 HGB 13.0 g/dL 14.0-18.0 MCH 31.6 pg 27.0-32.0 MCHC 32.7 g/dL 32.0-36.0 MCV 96.4 fL 82.0-99.0 MPV 10.1 fL 9.4-12.3 Platelet Count 190 K/uL 150-400 RBC 4.12 10*6/uL 4.60-6.20 RDW 13.4 % 11.5-14.5 WBC 8.0 K/uL 4.8-10.8 Basic Metabolic Panel (BMP) - 11/01/16 05:13 Anion Gap 7 NA 3-20 BUN 14 mg/dL 4-20 Calcium 9.3 mg/dL 8.6-10.0 Chloride 102 mEq/L 99-109 CO2 25 mEq/L 22-32 Creatinine 0.78 mg/dL 0.64-1.27 Glucose 101 mg/dL 70-100 Potassium 3.8 mEq/L 3.6-5.1 Sodium 134 mEq/L 136-144 Magnesium - 11/01/16 05:13 Magnesium 2.0 mg/dL 1.8-2.5 eGFR - 11/01/16 05:13 eGFR >60 NA >60 Protime (INR) - 11/01/16 16:07 INR 1.4 NA 0.9-1.2 CBC With Platelet No Differential - 11/02/16 03:43 HCT 38.1 % 42.0-52.0 HGB 12.4 g/dL 14.0-18.0 MCH 31.1 pg 27.0-32.0 MCHC 32.5 g/dL 32.0-36.0 MCV 95.5 fL 82.0-99.0 MPV 10.3 fL 9.4-12.3 Platelet Count 169 K/uL 150-400 RBC 3.99 10*6/uL 4.60-6.20 RDW 13.2 % 11.5-14.5 WBC 7.5 K/uL 4.8-10.8 Protime (INR) - 11/02/16 03:43 INR 1.4 NA 0.9-1.2 Basic Metabolic Panel (BMP) - 11/02/16 03:43 Anion Gap 5 NA 3-20 BUN 17 mg/dL 4-20 Calcium 9.3 mg/dL 8.6-10.0 Chloride 106 mEq/L 99-109 CO2 25 mEq/L 22-32 Creatinine 0.79 mg/dL 0.64-1.27 Glucose 101 mg/dL 70-100 Potassium 4.0 mEq/L 3.6-5.1 Sodium 136 mEq/L 136-144 Magnesium - 11/02/16 03:43 Magnesium 2.1 mg/dL 1.8-2.5 eGFR - 11/02/16 03:43 eGFR >60 NA >60 CBC With Platelet No Differential - 10/30/17 11:46 HCT 40.7 % 42.0-52.0 HGB 13.4 g/dL 14.0-18.0 MCH 31.7 pg 27.0-32.0 MCHC 32.9 g/dL 32.0-36.0 MCV 96.2 fL 82.0-99.0 MPV 10.5 fL 9.4-12.3 Platelet Count 170 K/uL 150-400 RBC 4.23 10*6/uL 4.60-6.20 RDW 13.7 % 11.5-14.5 WBC 6.1 K/uL 4.8-10.8 Basic Metabolic Panel (BMP) - 10/30/17 11:46 Anion Gap 9 mEq/L 3-20 BUN 18 mg/dL 4-20 Calcium 9.7 mg/dL 8.6-10.0 Chloride 105 mEq/L 99-109 CO2 26 mEq/L 22-32 Creatinine 0.80 mg/dL 0.64-1.27 Glucose 103 mg/dL 70-100 Potassium 4.6 mEq/L 3.6-5.1 Sodium 140 mEq/L 136-144 eGFR - 10/30/17 11:46 eGFR >60 mL/min >60 Encounters ACCT No. Visit Discharge Status Pt. Type Provider Facility Loc./Unit Complaint Date/Time [id number] 04/22/2015 04/22/2015 CLS Outpatient 09:34:00 23:59:59 [id number] 12/28/2016 12/28/2016 DIS Outpatient 08:33:23 08:33:23 [facility] 04/23/2015 ACT Document 04:02:32 Registrati on [id number] 11/26/2016 11/26/2016 CLS Outpatient Gri[place]ell 01 14:47:04 23:59:59 Harry WATT [id number] 11/15/2016 11/15/2016 CLS Outpatient Jag HANSON AARON 30 09:52:00 23:59:59 DORIS Becker [facility] [id number] 11/14/2016 11/14/2016 CLS Outpatient Jag HANSON AARON 66 16:33:00 23:59:59 DORIS Becker [facility] [id number] 07/24/2016 07/24/2016 DIS Outpatient ELLIE Rm CATH 64 12:58:00 16:10:00 , [facility] [id number] 07/05/2016 07/05/2016 CLS Outpatient Jag JAQUEZ LAB 33 09:28:00 23:59:59 [facility] [id number] 07/03/2016 07/03/2016 CLS Outpatient Jag HANSON AARON 60 13:32:00 23:59:59 DORIS Becker [facility] [id number] 06/21/2016 06/21/2016 CLS Outpatient Jag HANSON AARON 13 09:53:00 23:59:59 [id number] 06/19/2016 06/19/2016 CLS Outpatient Jag HANSON AARON 49 10:00:00 23:59:59 [facility] [id number] 05/09/2016 05/09/2016 DIS Outpatient CASANDRAFeng Rm CATH 20 05:54:00 12:10:00 , [facility] [id number] 05/29/2017 Document 48 12:24:00 Registrati on [id number] 10/31/2016 Document 97 09:35:00 Registrati on [id number] 10/16/2016 Document 32 08:50:00 Registrati on [id number] 10/30/2017 10/30/2017 DIS Outpatient Caridad, [facility] Heart I35.0 32 11:15:00 23:59:00 [facility] [place] [id number] 11/27/2016 11/27/2016 DIS Outpatient Caridad, [facility] Valve I35.0 24 13:05:00 23:59:00 [facility] [place] [id number] 11/22/2016 11/22/2016 DIS Outpatient Caridad, [facility] Valve I35.0 59 12:43:00 23:59:00 [facility] [id number] 10/31/2016 11/02/2016 DIS Inpatient Caridad, [facility] F4CT severe 97 09:35:00 13:45:00 [facility] stenosis on [place] [id number] 10/30/2016 10/30/2016 DIS Outpatient Caridad, [facility] PAT Aortic 42 13:01:00 23:59:00 [facility] stenosis on [place] [id number] 10/16/2016 10/16/2016 DIS Outpatient Caridad, [facility] F3E Aortic 32 08:50:00 18:30:00 [facility] on [place] [id number] 10/09/2016 10/09/2016 DIS Outpatient Caridad, [facility] Valve I35.0 67 09:37:00 23:59:00 [facility] Francis [id number] 11/03/2016 Document 1748 05:17:48 Registrati on [id number] 11/02/2016 Document 1606 05:16:06 Registrati on [id number] 11/01/2016 Document 1651 05:16:51 Registrati on [id number] 10/31/2016 Document 1643 05:16:43 Registrati on [id number] 10/17/2016 Document 1634 05:16:34 Registrati on [id number] 10/17/2016 Document 1633 05:16:33 Registrati on [id number] 10/10/2016 Document 1613 05:16:13 Registrati on
[2018-04-26] MEDS: SALINE FLUSH 10ml SYRINGE IVF PRN ×4 (09:53→20:27)
[2018-04-26] MEDS ORDERED: PANTOPRAZOLE 40 MG INJECTION IVP ONE (10:37)
[2018-04-26] MEDS ORDERED: POLYETHYL GLYCOL 3350 17gm PACKET PO PRN (12:21)
[2018-04-26] MEDS ORDERED: ONDANSETRON 4 MG/2 ML INJECTION IVP PRN (12:21)
[2018-04-26] MEDS ORDERED: BISACODYL 10 MG SUPPOSITORY RECTALLY PRN (12:21)
[2018-04-26 12:25] VITALS: BMI 31.1
[2018-04-26] MEDS: 1/2 NS 1,000 ML IV SCH (13:12)
[2018-04-26] MEDS ORDERED: Bisacodyl EC TAB 5 MG TABLET PO ONE (13:31)
[2018-04-26] MEDS: ACETAMINOPHEN 325 MG TABLET PO PRN (16:06)
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
[2018-04-26] MEDS: SALINE 0.65% NASAL SPRAY 44 ML BOTTLE EA NOSTRIL SCH ×2 (20:25→20:46)
[2018-04-26] MEDS: FLUTICASONE NASAL SPRAY 50mcg EA NOSTRIL SCH (20:26)
[2018-04-26] MEDS: GUAIFENESIN 400MG TABLET PO SCH (20:26)
[2018-04-26] MEDS: LORATADINE 10 MG TABLET PO SCH (20:26)
[2018-04-26] MEDS: PANTOPRAZOLE 40 MG INJECTION IVP SCH (20:27)
[2018-04-27] MEDS: 1/2 NS 1,000 ML IV SCH ×2 (02:29→11:07)
[2018-04-27] MEDS: ACETAMINOPHEN 325 MG TABLET PO PRN ×2 (02:47→15:00)
[2018-04-27] MEDS: LORATADINE 10 MG TABLET PO SCH (05:59)
[2018-04-27] MEDS: FLUTICASONE NASAL SPRAY 50mcg EA NOSTRIL SCH (09:48)
[2018-04-27] MEDS: SALINE FLUSH 10ml SYRINGE IVF PRN (09:49)
[2018-04-27] MEDS: SALINE 0.65% NASAL SPRAY 44 ML BOTTLE EA NOSTRIL SCH ×4 (09:49→20:47)
[2018-04-27] MEDS: PANTOPRAZOLE 40 MG INJECTION IVP SCH ×2 (09:50→20:47)
[2018-04-27] MEDS: GUAIFENESIN 400MG TABLET PO SCH ×2 (09:50→20:47)
[2018-04-27] MEDS: LACTOBACILLUS (15B cfu) CAPSULE PO SCH (09:52)
[2018-04-27] MEDS ORDERED: PHYTONADIONE 1 MG/0.5 ML ORAL LIQUID PO ONE (10:16)
--- NOTE | 2018-04-27 10:21 | Progress Note ---
- Date 04/27/18 Subjective: F/U: Acute GI bleed, Anticoagulation with warfarin Doing well today. Not had further stools. No nausea or ab pain. Breathing well- no cough, congestion, SOA. Not feeling chest pressure or pain. THORNE better-feels nasal medications helping. Noted increased urine output due to IVF. Objective Vital signs: Temperature 97.5 F 04/27/18 08:00 Pulse Rate 71 04/27/18 08:00 Respiratory Rate 19 04/27/18 08:00 Blood Pressure 106/51 04/27/18 08:00 Pulse Oximetry 96 04/27/18 08:00 Height/Weight/BMI: Height 1.83 m Weight 104 kg Body Mass Index 31.1 - Constitutional Present: well nourished, well developed, average body habitus, cooperative - Routine HEENT Exam Head: Present: normocephalic, atraumatic Eye: Present: EOMI, PERRL, normal accommodation ENT: Present: mucous membranes moist - Routine Respiratory Exam Present: decreased breath sounds. Absent: rales, respiratory distress, rhonchi , stridor, wheezes, crackles - Routine Cardiovascular Exam Present: no murmur, irregular rhythm, irregularly irregular - Routine Abdominal Exam Present: soft, normoactive bowel sounds, non distended, non tender. Absent: guarding - Routine Extremities Exam Present: no edema. Absent: cyanosis, clubbing Comments: SCD in place - Routine Musculoskeletal Exam Musculoskeletal: Present: no clubbing or cyanosis - Routine Skin Exam Present: dry, warm - Routine Neurological Exam Present: alert, oriented X3, CN II-XII intact, moving all extremities, vision grossly intact, hearing grossly intact, normal speech. Absent: motor deficit, altered mental status - Routine Psychiatric Exam Present: normal affect, normal thought process, cooperative Results - Labs CBC & Chem 7: 04/27/18 03:59 04/27/18 03:59 Assessment and Plan (1) GI bleed Current visit: Yes Status: Acute Assessment and Plan: Assessment Acute GI bleed (POA) Chronic anticoagulation on warfarin Orthostatic hypotension Acute on chronic anemia - hgb 10.2 on admission Atrial fib - unsuccessful cardioversion 2014 CAD CHF Hypertension History of aortic stenosis with valve replacement 2016 Mitral valve prolapse Obstructive sleep apnea - refuses to wear CPAP Constipation History of alcohol abuse - quit 1975 History of abdominal adhesions and small bowel obstruction - 2016 Obesity with BMI 31.1 Plan Hemoglobin stable at 10.7 - not having stools since diet restricted. Recheck this afternoon. INR 1.88 - not able to proceed with EGD. Will restart clear liquids and give Vit K 1mg. Decrease IVF to 50cc/hr. Continue IV Protonix BID for GI protection. Repeat CBC in am due to acute GI bleed. Will recheck BMP in am due to IVF use. DVT Prophylaxis: SCD's GI Prophylaxis: Protonix Resuscitation Status: Full Code - Time spent with patient Time with patient PN: 25 minutes - Physician Narrative Physician: Osorio Leo MD Narrative: Date: 04/27/18 Time: 1017 Hospital Course Summary Disclaimer: The visit summary below is not to be considered part of the above Progress Note. Hospital Course: 04/26/18 Admit to inpatient status under the care of Dr. Leo. Consult Dr. Uriarte for further evaluation and potential endoscopic evaluation. Initiate Protonix 40mg IV BID for GI protection and treatment of suspected GI ulcer. Hemoccult positive. Monitor closely on telemetry. High fall risk given orthostatic hypotension. Monitor serial hemoglobins closely. Will transfuse as indicated. Continue home bisoprolol for a-fib. Patient follows with Dr. Morel. Will hold home ASA and Coumadin given GI bleed. INR 1.92 on admission. Will recheck in AM and hold off on reversal treatment at this time. 1/2 NS at 75cc/hr for hydration. Monitor for fluid overload. Significant history of constipation with prior small bowel obstruction. Continue bowel motivation. Recheck labs in AM to monitor blood counts, electrolytes and renal function. Full code per his request. Upon discharge, patient's care will return to Angelina Giron APRN. 04/27/18 Hemoglobin stable at 10.7 - not having stools since diet restricted. Recheck this afternoon. INR 1.88 - not able to proceed with EGD. Will restart clear liquids and give Vit K 1mg. Decrease IVF to 50cc/hr. Continue IV Protonix BID for GI protection.
--- NOTE | 2018-04-27 18:12 | Progress Note ---
DATE 04/27/2018 HISTORY Since admission to the hospital, the patient had no further stools until this morning. He did have another black-colored stool this morning. He stated that it was not quite as dark as the previous stools but still had a black color. The patient has had no abdominal pain. PHYSICAL EXAMINATION VITAL SIGNS: Temperature is 97.5 degrees Fahrenheit oral. Pulse is 71. Respiratory rate is 19. Blood pressure is 106/51. Oxygen saturation is 96% on room air. ABDOMEN: The abdomen is soft and nontender. LABORATORY DATA White blood cell count is 6400 this morning. Hemoglobin is 10.7. Hematocrit is 32.6. INR is 1.88. IMPRESSION 1. Recent melena. 2. Anticoagulation with Coumadin. 3. Sigmoid colon diverticulosis. 4. Personal history of rectal adenocarcinoma. PLAN 1. Continue to hold Coumadin. 2. Continue to monitor INR. 3. Agree with administration of 1 mg of vitamin K ordered by Dr. Leo. 4. Agree with the intravenous Protonix 40 mg b.i.d. which the patient is receiving. 5. Esophagogastroduodenoscopy whenever the INR is lower. 6. Colonoscopy if no source for gastrointestinal tract bleeding which would lead to melena is found at esophagogastroduodenoscopy. MTDD
[2018-04-27] MEDS ORDERED: MAG-AL + SIM ORAL LIQUID 30ml PO PRN (21:02)
[2018-04-28] MEDS: LORATADINE 10 MG TABLET PO SCH (06:15)
[2018-04-28] MEDS: SALINE 0.65% NASAL SPRAY 44 ML BOTTLE EA NOSTRIL SCH ×4 (08:34→20:17)
[2018-04-28] MEDS: LACTOBACILLUS (15B cfu) CAPSULE PO SCH (08:34)
[2018-04-28] MEDS: GUAIFENESIN 400MG TABLET PO SCH ×2 (08:34→20:18)
[2018-04-28] MEDS: PANTOPRAZOLE 40 MG INJECTION IVP SCH ×2 (08:34→20:18)
[2018-04-28] MEDS: FLUTICASONE NASAL SPRAY 50mcg EA NOSTRIL SCH (08:35)
[2018-04-28] MEDS: 1/2 NS 1,000 ML IV SCH ×2 (08:40→14:29)
--- NOTE | 2018-04-28 10:11 | Progress Note ---
- Date 04/28/18 Subjective: Patient resting in bed at the time of interview. Reports having black-colored, tarry stools last night. Hemoglobin stable at 11.5 this morning. Review of records shows hemoglobin ranging from 10.711.5 during hospital stay. INR 1.72 this morning. Case discussed with general surgeon, Dr. Uriarte over the phone. Plan at this time to hold EGD/colonoscopy and Dr. Uriarte recommended INR at around 1.5 prior to planned procedure. We will provide vitamin K 1 mg by mouth 1. Recheck INR this evening at 1700 hrs. No reported abdominal pain, no nausea, no vomiting. Patient reports symptoms of headache noted on admission has resolved. No reported lightheadedness while resting in bed. Objective Vital signs: Temperature 97.8 F 04/28/18 07:21 Pulse Rate 75 04/28/18 08:00 Respiratory Rate 15 04/28/18 07:21 Blood Pressure 118/69 04/28/18 07:24 Pulse Oximetry 96 04/28/18 07:21 Height/Weight/BMI: Height 1.83 m Weight 100.1 kg Body Mass Index 31.1 - Additional findings Additional findings: General: Alert, awake, oriented x3. Not in acute distress. Head: Pupils equal, round, reactive to light and accommodation. Extraocular movements intact. Neck: No elevation in JVP. No pharyngeal erythema noted. Chest: The patient does not use accessory muscles for breathing. Lungs: Breath sounds audible on auscultation bilateral lung day. No wheezing , no rhonchi, no crepitations, no crackles. No pleural rub. CVS: S1, S2 heard on auscultation. Normal rate and rhythm. No murmur, no S3/S4 gallops. Abdomen: Soft, minimal distention. Tenderness to palpation noted in suprapubic region, right lower quadrant. No rebound, no guarding. Bowel sounds appreciated on auscultation in all 4 quadrants. Skin: No rashes, no induration, no erythema. Capillary refill less than 4 seconds. Extremities: No evidence of pedal edema bilateral lower extremities. No calf tenderness bilaterally. Palpable dorsalis pedis and posterior tibial pulses bilateral lower extremities. Results - Labs CBC & Chem 7: 04/28/18 04:05 04/28/18 04:05 Assessment and Plan (1) GI bleed Current visit: Yes Status: Acute Assessment and Plan: Assessment Acute GI bleed (POA) Chronic anticoagulation on warfarin Orthostatic hypotension, resolving Acute on chronic anemia - hgb 10.2 on admission Atrial fib - unsuccessful cardioversion 2014 CAD CHF Hypertension History of aortic stenosis with valve replacement 2016 Mitral valve prolapse Obstructive sleep apnea -noncompliant with CPAP Constipation History of alcohol abuse - quit 1974 History of abdominal adhesions and small bowel obstruction - 2016 Obesity Plan Hemoglobin 11.5 this morning. Hemoglobin ranging from 10.711.5 during hospital stay. Will monitor H&H. Patient had recurrent episode of black tarry stools noted last night. INR 1.72, will provide vitamin K 1 mg by mouth 1 and recheck INR this evening at 1700. Case discussed with Dr. Uriarte, recommendation for INR at approximately 1.5 prior to procedure. Patient restarted on clear liquid diet, plan for nothing by mouth after midnight with tentative plan for EGD/colonoscopy tomorrow by Dr. Uriarte. Continue IV fluids at 50 mL per hour. Continue IV Protonix 40 mg twice a day. DVT Prophylaxis: SCD's GI Prophylaxis: Protonix Resuscitation Status: Full Code - Physician Narrative Narrative: Date: 04/28/18 Time: 1006 Hospital Course Summary Disclaimer: The visit summary below is not to be considered part of the above Progress Note. Hospital Course: 04/26/18 Admit to inpatient status under the care of Dr. Leo. Consult Dr. Uriarte for further evaluation and potential endoscopic evaluation. Initiate Protonix 40mg IV BID for GI protection and treatment of suspected GI ulcer. Hemoccult positive. Monitor closely on telemetry. High fall risk given orthostatic hypotension. Monitor serial hemoglobins closely. Will transfuse as indicated. Continue home bisoprolol for a-fib. Patient follows with Dr. Morel. Will hold home ASA and Coumadin given GI bleed. INR 1.92 on admission. Will recheck in AM and hold off on reversal treatment at this time. 1/2 NS at 75cc/hr for hydration. Monitor for fluid overload. Significant history of constipation with prior small bowel obstruction. Continue bowel motivation. Recheck labs in AM to monitor blood counts, electrolytes and renal function. Full code per his request. Upon discharge, patient's care will return to Angelina Giron APRN. 04/27/18 Hemoglobin stable at 10.7 - not having stools since diet restricted. Recheck this afternoon. INR 1.88 - not able to proceed with EGD. Will restart clear liquids and give Vit K 1mg. Decrease IVF to 50cc/hr. Continue IV Protonix BID for GI protection. 04/28/2018 Hemoglobin 11.5 this morning. Hemoglobin ranging from 10.711.5 during hospital stay. Will monitor H&H. Patient had recurrent episode of black tarry stools noted last night. INR 1.72, will provide vitamin K 1 mg by mouth 1 and recheck INR this evening at 1700. Case discussed with Dr. Uriarte, recommendation for INR at approximately 1.5 prior to procedure. Patient restarted on clear liquid diet, plan for nothing by mouth after midnight with tentative plan for EGD/colonoscopy tomorrow by Dr. Uriarte. Continue IV fluids at 50 mL per hour. Continue IV Protonix 40 mg twice a day.
[2018-04-28] MEDS ORDERED: PHYTONADIONE 1 MG/0.5 ML ORAL LIQUID PO ONE (10:12)
[2018-04-28] MEDS: ACETAMINOPHEN 325 MG TABLET PO PRN (13:07)
--- NOTE | 2018-04-28 18:44 | Progress Note ---
DATE 04/28/2018 HISTORY The patient has not had any abdominal pain. He states he is still passing very small amounts of old black blood. The INR was 1.72 this morning. We did hold off on performing esophagogastroduodenoscopy because of this anticoagulation with Coumadin. Dr. Brar did give the patient an additional 1 mg of vitamin K by mouth today. We did recheck the INR at 1710 hours today and result is now 1.55. PHYSICAL EXAMINATION VITAL SIGNS: Temperature is 97.3 degrees Fahrenheit oral. Pulse is 66. Respiratory rate is 12. Blood pressure is 105/65. Oxygen saturation is 97% on room air. ABDOMEN: The abdomen is soft and nontender. LABORATORY DATA Hemoglobin is 11.5 today. Hematocrit is 34. INR this morning was 1.70. Repeat INR at 1710 hours is 1.55. IMPRESSION 1. Recent melena. 2. Recent anticoagulation with Coumadin. 3. Sigmoid colon diverticulosis. 4. Personal history of rectal adenocarcinoma. PLAN 1. Continue to hold Coumadin. 2. Continue to monitor INR. 3. I agree with the intravenous Protonix 40 mg p.o. b.i.d. which the patient is receiving. 4. Schedule patient for esophagogastroduodenoscopy with possible biopsies and possible control of upper gastrointestinal tract bleeding point tomorrow. [facility]
[2018-04-29] MEDS: 1/2 NS 1,000 ML IV SCH (01:58)
[2018-04-29] MEDS: LORATADINE 10 MG TABLET PO SCH (05:31)
[2018-04-29] MEDS: NS 1,000 ML IV SCH (09:34)
[2018-04-29] MEDS ORDERED: LIDOCAINE VISCOUS 2% ORAL LIQUID 15ml ONE (10:00)
--- NOTE | 2018-04-29 10:02 | Anesthesia Preoperative Report ---
Anesthesia Preoperative Record - Date and Time Date: 04/29/18 Preoperative Diagnosis: GI Bleed, Orthostasis NPO Since Date: 04/28/18 NPO Since Time: 00:00 Allergies/Adverse Reactions: Allergies Allergy/AdvReac Type Severity Reaction Status Date / Time Penicillins Allergy Intermediate SWELLING Verified 04/26/18 10:06 alcohol AdvReac Unknown RECOVERING Verified 04/26/18 10:06 ALCOHOLIC - Vital Signs Vital Signs: Temperature 97.9 F 04/29/18 08:59 Pulse Rate 87 04/29/18 08:59 Respiratory Rate 16 04/29/18 08:59 Blood Pressure 135/61 04/29/18 08:59 Pulse Oximetry 96 04/29/18 08:59 Height and Weight: Height 1.83 m Weight 99.6 kg Body Mass Index 31.1 - Medications Inpatient Medications: Current Medications Acetaminophen (Tylenol) 650 mg PO Q5H PRN PRN Reason: Discomfort Last Admin: 04/28/18 13:07 Dose: 650 mg Al Hydroxide/Mg Hydroxide (Maalox Plus) 30 ml PO Q6H PRN PRN Reason: Indigestion Last Admin: 04/27/18 21:25 Dose: 30 ml Bisacodyl (Dulcolax) 10 mg RECTALLY DAILY PRN PRN Reason: Constipation Bisoprolol Fumarate (Zebeta) 5 mg PO HS [facility] Last Admin: 04/28/18 20:18 Dose: 5 mg Fluticasone Propionate (Flonase) 2 spray EA NOSTRIL DAILY [facility] Last Admin: 04/28/18 08:35 Dose: 2 spray Guaifenesin (Mucinex) 400 mg PO BID [facility] Last Admin: 04/28/18 20:18 Dose: 400 mg Sodium Chloride (1/2 Normal Saline) 1,000 mls @ 50 mls/hr IV .Q20H [facility] Last Infusion: 04/29/18 08:54 Dose: 0 mls/hr Sodium Chloride (Normal Saline) 1,000 mls @ 50 mls/hr IV .Q20H [facility] Last Admin: 04/29/18 09:34 Dose: 50 mls/hr Lactobacillus Acidophilus (Culturelle) 1 cap PO DAILY [facility] Last Admin: 04/28/18 08:34 Dose: 1 cap Loratadine (Claritin) 10 mg PO ACB [facility] Last Admin: 04/29/18 05:31 Dose: Not Given Magnesium Hydroxide (Mom) 30 ml PO DAILY PRN PRN Reason: Constipation Ondansetron HCl (Zofran) 4 mg IVP Q6H PRN PRN Reason: Nausea Pantoprazole Sodium (Protonix Iv) 40 mg IVP BID [facility] Last Admin: 04/28/18 20:18 Dose: 40 mg Polyethylene Glycol (Miralax) 17 gm PO DAILY PRN PRN Reason: Constipation Sodium Chloride (Iv Flush) 10 - 80 ml IVF PRN PRN PRN Reason: Flushing Last Admin: 04/27/18 09:49 Dose: 20 ml Sodium Chloride (Deep Sea Nasal Moisturizing [place]) 2 spray EA NOSTRIL QID [facility] Last Admin: 04/28/18 20:17 Dose: 2 spray Home Medications: Home Medications Medication Instructions Recorded Confirmed Type Warfarin Sodium 3 mg PO DAILY #0 05/09/16 04/26/18 History aspirin 81 mg tablet,delayed 81 mg PO DAILY tab 06/05/17 04/26/18 History release Bisoprolol [Zebeta] 5 mg PO HS 04/26/18 04/26/18 History Docusate Sodium [Stool Softener] 200 mg PO PRN 04/26/18 04/26/18 History Lactobacillus Acidophilus 1 cap PO DAILY 04/26/18 04/26/18 History [Probiotic] PEG 3350 17gm PACKET [Miralax] 17 gm PO PRN 04/26/18 04/26/18 History Is Patient on Beta Michael?: Yes - Medical History Respiratory: Reports: Sleep Apnea (does not have cpap) Cardiovascular: Reports: Arrhythmia (a-fib), Congestive Heart Failure, Hypertension, Valvular Heart Disease (AORTIC STENOSIS, MITRAL VALVE PROLAPSE) Gastrointestional: Reports: Other (CONSTIPATION/DIARRHEA) Neuro/Musculoskeletal: Reports: Back Problems (OCCASIONAL PAIN) Renal/Endocrine: Reports: Other (GOITER OF THYROID) - Surgical History HEENT Surgeries: Reports: Eye Surgery Cardiac Surgeries/Treatments: Reports: Cardiac Catheterization, Valve Replacement GI Surgery/Treatments: Reports: Colon Resection (YEARS AGO) Anesthesia Reactions: None Hx Family Anesthesia Reaction: No History of Motion Sickness: No - Social History Smoking Status: Never smoker Hx Chewing Tobacco Use: No Second Hand Exposure: No Substance Use Type: does not use Alcohol Intake Frequency: former alcohol drinker - Pertinent Findings Laboratory: CBC and BMP 04/28/18 17:45 04/29/18 03:52 BMP 04/29/18 03:52 Sodium 143 Potassium 4.0 Chloride 108 H Carbon Dioxide 25 BUN 10.0 Creatinine 0.7 L Glucose 95 Calcium 9.6 EKG: A-fib - Physical Exam Respiratory Exam: Present: lungs clear, bilateral breath sounds equal Cardiovascular Exam: Present: irregularly irregular - Airway Assessment Mallampati Score: II TMD: 3 Fingerbreadths Neck Extension: poor Teeth: poor dentation (edentulous) Overall Assessment: no airway concerns - ASA ASA Score: 4 - Plan Anesthesia: General TIVA - Discussion Discussion: Discussed risks/options/alternatives of anesthesia and questions answered. Patient consents. Nursing pain assessment noted. Attestation Statement: Prior to the delivery of any anesthetic medication, I examined the patient, developed the plan, obtained the patient's consent and discussed the risk and benefits of the procedure with the patient/guardian. - Additional Information Seen by Anesthesia: Yes
[2018-04-29] MEDS ORDERED: LIDOCAINE VISCOUS 2% ORAL LIQUID 15ml PO ONE (10:12)
[2018-04-29] MEDS ORDERED: PROPOFOL 20 ML ONE (10:20)
[2018-04-29] MEDS ORDERED: SALINE FLUSH 10ml SYRINGE ONE (10:22)
--- NOTE | 2018-04-29 10:33 | General Surgery Procedure Note ---
Date of Procedure: 04/29/18 Surgeon: Kalani Postoperative Diagnosis: Gastric ulcer Procedure: EGD with biopsies Estimated Blood Loss: See Anesthesia Record.
[2018-04-29] MEDS: PANTOPRAZOLE 40 MG INJECTION IVP SCH ×2 (11:25→20:38)
[2018-04-29] MEDS: FLUTICASONE NASAL SPRAY 50mcg EA NOSTRIL SCH (11:25)
[2018-04-29] MEDS: LACTOBACILLUS (15B cfu) CAPSULE PO SCH (11:26)
[2018-04-29] MEDS: GUAIFENESIN 400MG TABLET PO SCH ×2 (11:26→20:37)
[2018-04-29] MEDS: SALINE 0.65% NASAL SPRAY 44 ML BOTTLE EA NOSTRIL SCH ×4 (11:26→20:37)
--- NOTE | 2018-04-29 11:55 | Anesthesia Postoperative Note ---
- Date and Time Date: 04/29/18 Time: 11:38 - Status Patient Participated in Evaluation: Patient Participated in Person Vital Signs: Temperature 97.2 F 04/29/18 11:01 Pulse Rate 67 04/29/18 11:46 Respiratory Rate 18 04/29/18 11:46 Blood Pressure 120/69 04/29/18 11:46 Pulse Oximetry 98 04/29/18 11:46 Respiratory Function: Airway Patent, Regular Respirations Cardiovascular Function: Irregular Pulse Mental Status: Alert and Oriented Pain Intensity: 0 Hydration: IV Infusing Nausea/Vomiting: None Complications During Recover: None Apparent - Follow-Up Instructions Instructions: Per Surgeon
[2018-04-29] MEDS: SUCRALFATE 1 GM TABLET PO SCH ×3 (11:58→20:38)
--- NOTE | 2018-04-29 12:19 | Progress Note ---
- Date 04/29/18 Subjective: Patient status post EGD performed earlier this morning, case discussed with Dr. Uriarte over the phone. Patient noted to have peptic ulcer disease with gastric ulcer noted, no evidence of acute bleeding although ulcer margins were inflamed. Dr. Uriarte believes this to be source of bleeding in the context of supratherapeutic INR and Coumadin use at home. Biopsy results, CLOtest pending. INR 1.46 today when compared to 1.55 yesterday. In addition to IV Protonix 40 mg twice a day, patient started on oral Carafate 1 g before meals and at bedtime. Patient on clear liquid diet. Discussed with patient at bedside about colonoscopy, patient reportedly had a polyp/lesion noted on previous colonoscopy many years ago although patient has not followed up since then. Concern for cancer. Patient reports that he would like to consider colonoscopy as an outpatient once he has recovered from present condition. Patient has history of mechanical aortic valve replacement approximately a year ago performed by Dr. Alvarez and also has history of paroxysmal atrial fibrillation. Cardiology consult placed, informed about consult to Dr. Adriel RINALDI. Objective Vital signs: Temperature 97.2 F 04/29/18 11:01 Pulse Rate 67 04/29/18 11:46 Respiratory Rate 18 04/29/18 11:46 Blood Pressure 120/69 04/29/18 11:46 Pulse Oximetry 98 04/29/18 11:46 Height/Weight/BMI: Height 1.83 m Weight 99.6 kg Body Mass Index 31.1 - Additional findings Additional findings: General: Alert, awake, oriented x3. Not in acute distress. Head: Pupils equal, round, reactive to light and accommodation. Extraocular movements intact. Neck: No elevation in JVP. No pharyngeal erythema noted. Chest: The patient does not use accessory muscles for breathing. Lungs: Breath sounds audible on auscultation bilateral lung day. No wheezing , no rhonchi, no crepitations, no crackles. No pleural rub. CVS: S1, S2 heard on auscultation. Normal rate and rhythm. No murmur, no S3/S4 gallops. Abdomen: Soft, minimal distention. Tenderness to palpation noted in suprapubic region, right lower quadrant. No rebound, no guarding. Bowel sounds appreciated on auscultation in all 4 quadrants. Skin: No rashes, no induration, no erythema. Capillary refill less than 4 seconds. Extremities: No evidence of pedal edema bilateral lower extremities. No calf tenderness bilaterally. Palpable dorsalis pedis and posterior tibial pulses bilateral lower extremities. Results - Labs CBC & Chem 7: 04/29/18 03:52 04/29/18 03:52 Labs: INR 1.46. Assessment and Plan (1) GI bleed Current visit: Yes Status: Acute Assessment and Plan: Assessment Acute GI bleed (POA) Chronic anticoagulation on warfarin Orthostatic hypotension, resolving Acute on chronic anemia - hgb 10.2 on admission Atrial fib - unsuccessful cardioversion 2014 CAD CHF Hypertension History of aortic stenosis with mechanical valve replacement 2016 Mitral valve prolapse Obstructive sleep apnea -noncompliant with CPAP Constipation History of alcohol abuse - quit 1974 History of abdominal adhesions and small bowel obstruction - 2016 Obesity Plan Hemoglobin 11.7 this morning. Hemoglobin ranging from 10.711.9 during hospital stay. Will monitor H&H. INR 1.46 today when compared to 1.55 yesterday. Patient status post EGD performed by Dr. Uriarte this morning which showed evidence of gastric ulcer with red, inflamed margins. Awaiting results of CLOtest, biopsy. At this moment, patient opted to defer colonoscopy and wants to consider colonoscopy as an outpatient. Cardiology consult placed for recommendations regarding anticoagulation. Patient restarted on clear liquid diet. Plan to advance to low salt, bland, Low irritant diet as tolerated. Continue IV fluids at 50 mL per hour. Continue IV Protonix 40 mg twice a day. DVT Prophylaxis: SCD's GI Prophylaxis: Protonix Resuscitation Status: Full Code - Physician Narrative Narrative: Date: 04/29/18 Time: 1214 Hospital Course Summary Disclaimer: The visit summary below is not to be considered part of the above Progress Note. Hospital Course: 04/26/18 Admit to inpatient status under the care of Dr. Leo. Consult Dr. Uriarte for further evaluation and potential endoscopic evaluation. Initiate Protonix 40mg IV BID for GI protection and treatment of suspected GI ulcer. Hemoccult positive. Monitor closely on telemetry. High fall risk given orthostatic hypotension. Monitor serial hemoglobins closely. Will transfuse as indicated. Continue home bisoprolol for a-fib. Patient follows with Dr. Morel. Will hold home ASA and Coumadin given GI bleed. INR 1.92 on admission. Will recheck in AM and hold off on reversal treatment at this time. 1/2 NS at 75cc/hr for hydration. Monitor for fluid overload. Significant history of constipation with prior small bowel obstruction. Continue bowel motivation. Recheck labs in AM to monitor blood counts, electrolytes and renal function. Full code per his request. Upon discharge, patient's care will return to Angelina Giron APRN. 04/27/18 Hemoglobin stable at 10.7 - not having stools since diet restricted. Recheck this afternoon. INR 1.88 - not able to proceed with EGD. Will restart clear liquids and give Vit K 1mg. Decrease IVF to 50cc/hr. Continue IV Protonix BID for GI protection. 04/28/2018 Hemoglobin 11.5 this morning. Hemoglobin ranging from 10.711.5 during hospital stay. Will monitor H&H. Patient had recurrent episode of black tarry stools noted last night. INR 1.72, will provide vitamin K 1 mg by mouth 1 and recheck INR this evening at 1700. Case discussed with Dr. Uriarte, recommendation for INR at approximately 1.5 prior to procedure. Patient restarted on clear liquid diet, plan for nothing by mouth after midnight with tentative plan for EGD/colonoscopy tomorrow by Dr. Uriarte. Continue IV fluids at 50 mL per hour. Continue IV Protonix 40 mg twice a day. 04/29/2018 Hemoglobin 11.7 this morning. Hemoglobin ranging from 10.711.9 during hospital stay. Will monitor H&H. INR 1.46 today when compared to 1.55 yesterday. Patient status post EGD performed by Dr. Uriarte this morning which showed evidence of gastric ulcer with red, inflamed margins. Awaiting results of CLOtest, biopsy. At this moment, patient opted to defer colonoscopy and wants to consider colonoscopy as an outpatient. Cardiology consult placed for recommendations regarding anticoagulation. Patient restarted on clear liquid diet. Plan to advance to low salt, bland, Low irritant diet as tolerated. Continue IV fluids at 50 mL per hour. Continue IV Protonix 40 mg twice a day.
--- NOTE | 2018-04-29 12:34 | Operative Note ---
DATE OF OPERATION 04/29/2018 PREOPERATIVE DIAGNOSES 1. Melena. 2. Recent anticoagulation with Coumadin. POSTOPERATIVE DIAGNOSES 1. Melena. 2. Recent anticoagulation with Coumadin. 3. Gastric ulcer. OPERATION Esophagogastroduodenoscopy with biopsies. SURGEON Jessee Uriarte MD ANESTHESIA TIVT ASA CLASS 4 FINDINGS The esophagus appeared normal. The duodenum appeared normal. The patient does have a moderate sized gastric ulcer. This was a deep ulcer with white fibrinous exudate at the base of the ulcer. Margins of the ulcer were inflamed. There was no visible bleeding vessel at the base the ulcer. There was no blood clot at the base of the ulcer. This was thought to be a large enough ulcer that it could be the source for melena with recent anticoagulation of the patient. The ulcer was located at the lesser curvature of the stomach at the incisura. It was located at about the junction of the antrum and body of the stomach along the incisura. There was no active bleeding from the ulcer at the time of operation. There was no bright red blood or old blood in the stomach at the time of the operation. The previous bleeding from the ulcer had stopped by this time. DESCRIPTION OF OPERATION The patient was brought to the endoscopy room. The patient was placed on a cart in the endoscopy room. The patient was placed in left lateral recumbent position on the cart. The patient was premedicated with intravenous sedation medication administered by the nurse shellfish bed worker. The Olympus upper GI endoscope was used. The upper GI endoscope was introduced into the esophagus. The upper GI endoscope was advanced down through the esophagus and stomach and into the duodenum. The upper GI endoscope was then withdrawn from the duodenum back into the stomach. The upper GI endoscope was retroflexed. The ulcer was identified with this retroflexed view. The ulcer was best seen with this retroflexed view. The gastroesophageal junction was viewed from below with the upper GI endoscope in a retroflexed position. The upper GI endoscope was then straightened out. The stomach was examined further. The endoscopic biopsy forceps was used to obtain a sample of prepyloric antral gastric mucosa which was submitted for USAMA test studies. The ulcer was once again visualized with the upper GI endoscope in a retroflexed position. The endoscopic biopsy forceps was used to obtain multiple biopsies from the margins of this ulcer. These biopsy specimens of the ulcer were all submitted for study by the pathologist. Hemostasis was satisfactory at the biopsy sites. The upper GI endoscope was then straightened out. The upper GI endoscope was then withdrawn out through the stomach and esophagus and removed from the patient. Findings throughout the procedure were as described above. The patient did continue to receive intravenous sedation medication administered by the nurse shellfish bed worker throughout the operation. The patient did tolerate the operation well. LEOBARDO
[2018-04-29] MEDS: ACETAMINOPHEN 325 MG TABLET PO PRN (14:11)
--- NOTE | 2018-04-29 15:45 | Cardiology Consult Note ---
<Larissa Flor - Last Filed: 04/29/18 15:55> History of Present Illness Consult date: 04/29/18 Requesting physician: Josesito Brar Consult reason: atrial fibrillation Chief complaint: GI bleed History of present illness: Saravanan is an 83-year-old male who is known to Dr. Morel with a history of PAF, CAD, HTN and severe Aortic stenosis who underwent TAVR in October of 2016, chronically anticoagulated with warfarin. He reports that on 04/23/18 he began to notice that his stools were very dark and he had increasing dizziness with standing, worse over the past week. Orthostatic vital signs in the ED were 142/ 78 supine, 149/79 sitting and 122/76 standing with complaints of dizziness and off balance. Labs revealed hgb of 10.8, (most recent hemoglobin available was from 2015 and was 12.7). INR is slightly subtherapeutic at 1.92. Fecal hemoccult was positive. Dr. Leo was consulted and he was admitted to inpatient status for further evaluation, close hemodynamic monitoring and surgical evaluation. Following endoscopy, Dr. Morel is consulted for recommendation regarding anticoagulation in light of patient's ulcer, and we appreciate the consult. Review of Systems - Constitutional Constitutional: Present: fatigue. Absent: chills, fever(s) - EENMT Eyes: Absent: change in vision Balance: Absent: vertigo Mouth/Throat: Absent: sore throat - Cardiovascular Cardiovascular: Absent: chest pain, palpitations, syncope, dyspnea on exertion, orthopnea, edema, heart murmur Rhythm: Absent: abnormal rhythm Vascular: Absent: pedal edema - Respiratory Respiratory: Absent: cough, dyspnea, dyspnea on exertion - Gastrointestinal Gastrointestinal: Present: melena. Absent: diarrhea, nausea, vomiting - Genitourinary Genitourinary: Absent: dysuria - Integumentary/Breasts Integumentary: Absent: rash - Neurological Neurological: Present: dizziness, weakness - Endocrine Endocrine: Absent: palpitations [facility] Patient Stated Medical History Cataracts Yes Glaucoma Yes Other HEENT Yes: pt doesn't recall what it was for ( cataracts?) Cardiac Arrhythmia Yes: a-fib Congestive Heart Failure Yes Hypertension Yes Valvular Heart Disease Yes: AORTIC STENOSIS, MITRAL VALVE PROLAPSE Sleep Apnea Yes Other GI Yes: CONSTIPATION/DIARRHEA Clotting Problems Yes: ON COUMADIN Medical History Updates: Atrial fib - unsuccessful cardioversion 2014. Chronic anticoagulation on warfarin. CAD. Constipation. CHF. Hypertension. History of aortic stenosis with valve replacement 2017. Mitral valve prolapse. Obstructive sleep apnea - refuses to wear CPAP. History of alcohol abuse - quit 1974. History of abdominal adhesions and small bowel obstruction - 2016. Surgical History: heart surgery. colonoscopy Family History: Family History (Last Updated 06/05/17 @ 11:59 by Laurel Floyd [facility]) Father Pneumonia Mother Stroke Sister No known health problems Brother Heart disease - Social History Smoking status: Never smoker second hand exposure: No Substance use type: does not use Alcohol intake frequency: former alcohol drinker Housing: apartment Household members: none, other (Son lives in same building and his daughter is in town.) Current occupational status: retired Does patient use chewing tobacco?: No Current residence: Apartment/Private Home Medications Home Medications Medication Instructions Recorded Confirmed Type Bisoprolol [Zebeta] 5 mg PO HS 04/26/18 04/26/18 History Docusate Sodium [Stool Softener] 200 mg PO PRN 04/26/18 04/26/18 History Lactobacillus Acidophilus 1 cap PO DAILY 04/26/18 04/26/18 History [Probiotic] PEG 3350 17gm PACKET [Miralax] 17 gm PO PRN 04/26/18 04/26/18 History Pantoprazole Tab [Protonix Tab] 40 mg PO NOTE #44 tab 04/30/18 Rx Sucralfate [Carafate] 1 gm PO ACHS #120 tab 04/30/18 Rx Allergies Allergy/AdvReac Type Severity Reaction Status Date / Time Penicillins Allergy Intermediate SWELLING Verified 04/26/18 10:06 alcohol AdvReac Unknown RECOVERING Verified 04/26/18 10:06 ALCOHOLIC Exam Vital signs: Temperature 97 F 04/29/18 13:46 Pulse Rate 76 04/29/18 13:46 Respiratory Rate 16 04/29/18 13:46 Blood Pressure 122/66 04/29/18 13:46 Pulse Oximetry 97 04/29/18 13:46 - Constitutional no acute distress, well nourished, cooperative - Routine HEENT Exam Head: Present: normocephalic ENT: Present: mucous membranes moist - Routine Neck Exam Absent: JVD, carotid bruit - Routine Chest/Breast/Axilla Exam Chest wall: Absent: tenderness - Routine Respiratory Exam Present: CTA bilaterally. Absent: dyspnea, rales, crackles - Routine Cardiovascular Exam Present: no murmur, irregular rhythm - Routine Abdominal Exam Present: soft, non tender - Routine Extremities Exam Present: no edema - Routine Skin Exam Present: intact, dry, warm - Routine Neurological Exam Present: alert, oriented X3 - Routine Psychiatric Exam Present: normal affect, normal thought process Results 04/29/18 03:52 04/29/18 12:56 CBC 04/28/18 04/29/18 Range/Units 17:45 03:52 WBC 7.2 6.9 (4.5-11.0) T/MM3 RBC 3.59 L 3.64 L (4.50-5.90) M/MM3 Hgb 11.9 L 11.7 L (13.5-17.5) GM/DL Hct 34.1 L 35.1 L (41-53) % Plt Count 195 178 (130-400) T/MM3 Neut # (Auto) 4.2 (1.8-7.7) T/MM3 Lymph # (Auto) 2.1 (1-4.8) T/MM3 [place] # (Auto) 0.6 (0-0.8) T/MM3 Eos # (Auto) 0.2 (0-0.5) T/MM3 Baso # (Auto) 0.0 (0-0.2) T/MM3 Comprehensive Metabolic Panel 04/29/18 04/29/18 Range/Units 03:52 12:56 Sodium 143 141 (136-146) MEQ/L Potassium 4.0 4.4 (3.6-5) MEQ/L Chloride 108 H 107 (98-107) MEQ/L Carbon Dioxide 25 23 (22-30) MEQ/L BUN 10.0 11.0 (9-20) MG/DL Creatinine 0.7 L 0.8 (0.8-1.5) mg/dL Glucose 95 91 (75-110) MG/DL Calcium 9.6 9.4 (8.4-10.2) MG/DL Intake and Output 04/29/18 04/29/18 04/29/18 06:59 14:59 22:59 Intake Total 400 / 400 1440.833 / 1440.833 Balance 400 / 400 1440.833 / 1440.833 Intake: IV 1120.833 / 1120.833 1/2 Ns 1,000 ml @ 50 mls/hr IV 920.833 / 920.833 .Q20H DARIA Rx#:[id number] Ns 1,000 ml @ 50 mls/hr IV . 200 / 200 Q20H DARIA Rx#:[id number] Oral 400 / 400 320 / 320 Other: Urine Color Yellow Stool Color Brown Stool Consistency Watery Size of Bowel Movement Copious # Voids 1 1 # Bowel Movements 1 Weight 219 lb 9.286 oz Patient Weight 04/30/18 06:59 Weight 219 lb 9.286 oz EKG interpretations - EKG EKG shows: atrial fibrillation (HR 70) Assessment and Plan - Assessment and Plan (1) GI bleed Status: Acute (2) Paroxysmal atrial fibrillation Status: Chronic - asymptomatic, rate controlled with BB - Please hold warfarin anticoagulation while being treated for ulcer and GI bleed, will plan to resume in 1 month (3) S/P TAVR (transcatheter aortic valve replacement) Status: Chronic 10/2016 - no chronic anticoagulation needed with TAVR valve (4) Essential (primary) hypertension Status: Chronic well controlled on current therapy (5) Atherosclerotic heart disease of [place] coronary artery without angina pectoris Status: Acute - Assessment and Plan GI bleed Current visit: Yes Status: Acute - per surgery consult and hospitalist - Hold warfarin for 1 month Paroxysmal atrial fibrillation Current visit: Yes Status: Chronic - asymptomatic, rate controlled with BB - Please hold warfarin anticoagulation while being treated for ulcer and GI bleed, will plan to resume in 1 month S/P TAVR (transcatheter aortic valve replacement) Current visit: Yes Status: Chronic - 10/2016 - no chronic anticoagulation needed with TAVR valve Essential (primary) hypertension Current visit: Yes Status: Chronic - well controlled on current therapy Atherosclerotic heart disease of [place] coronary artery without angina pectoris Current visit: Yes Status: Acute Thank you for allowing us to participate in the care of this patient, we will follow along with you. Hospital Course Summary Disclaimer: The visit summary below is not to be considered part of the above Progress Note. Hospital Course: 04/26/18 Admit to inpatient status under the care of Dr. Leo. Consult Dr. Uriarte for further evaluation and potential endoscopic evaluation. Initiate Protonix 40mg IV BID for GI protection and treatment of suspected GI ulcer. Hemoccult positive. Monitor closely on telemetry. High fall risk given orthostatic hypotension. Monitor serial hemoglobins closely. Will transfuse as indicated. Continue home bisoprolol for a-fib. Patient follows with Dr. Morel. Will hold home ASA and Coumadin given GI bleed. INR 1.92 on admission. Will recheck in AM and hold off on reversal treatment at this time. 1/2 NS at 75cc/hr for hydration. Monitor for fluid overload. Significant history of constipation with prior small bowel obstruction. Continue bowel motivation. Recheck labs in AM to monitor blood counts, electrolytes and renal function. Full code per his request. Upon discharge, patient's care will return to Angelina Giron APRN. 04/27/18 Hemoglobin stable at 10.7 - not having stools since diet restricted. Recheck this afternoon. INR 1.88 - not able to proceed with EGD. Will restart clear liquids and give Vit K 1mg. Decrease IVF to 50cc/hr. Continue IV Protonix BID for GI protection. 04/28/2018 Hemoglobin 11.5 this morning. Hemoglobin ranging from 10.711.5 during hospital stay. Will monitor H&H. Patient had recurrent episode of black tarry stools noted last night. INR 1.72, will provide vitamin K 1 mg by mouth 1 and recheck INR this evening at 1700. Case discussed with Dr. Uriarte, recommendation for INR at approximately 1.5 prior to procedure. Patient restarted on clear liquid diet, plan for nothing by mouth after midnight with tentative plan for EGD/colonoscopy tomorrow by Dr. Uriarte. Continue IV fluids at 50 mL per hour. Continue IV Protonix 40 mg twice a day. 04/29/2018 Hemoglobin 11.7 this morning. Hemoglobin ranging from 10.711.9 during hospital stay. Will monitor H&H. INR 1.46 today when compared to 1.55 yesterday. Patient status post EGD performed by Dr. Uriarte this morning which showed evidence of gastric ulcer with red, inflamed margins. Awaiting results of CLOtest, biopsy. At this moment, patient opted to defer colonoscopy and wants to consider colonoscopy as an outpatient. Cardiology consult placed for recommendations regarding anticoagulation. Patient restarted on clear liquid diet. Plan to advance to low salt, bland, Low irritant diet as tolerated. Continue IV fluids at 50 mL per hour. Continue IV Protonix 40 mg twice a day. <Julian Morel - Last Filed: 05/05/18 14:23> [facility] Patient Stated Medical History Cataracts Yes Glaucoma Yes Other HEENT Yes: pt doesn't recall what it was for ( cataracts?) Cardiac Arrhythmia Yes: a-fib Congestive Heart Failure Yes Hypertension Yes Valvular Heart Disease Yes: AORTIC STENOSIS, MITRAL VALVE PROLAPSE Sleep Apnea Yes Other GI Yes: CONSTIPATION/DIARRHEA Clotting Problems Yes: ON COUMADIN Family History: Family History (Last Updated 06/05/17 @ 11:59 by Laurel Floyd [facility]) Father Pneumonia Mother Stroke Sister No known health problems Brother Heart disease Exam Vital signs: Temperature 97.0 F 04/30/18 11:57 Pulse Rate 74 04/30/18 11:57 Respiratory Rate 18 04/30/18 11:57 Blood Pressure 121/79 04/30/18 11:57 Pulse Oximetry 98 04/30/18 11:57 Results 04/30/18 04:34 04/29/18 12:56 Assessment and Plan - Attestation Attestation Narrative: 05/05/18 14:23 Recommendation After examining the patient I agree with the above assessment. I am involved in the formulation of the patient's plan of care. - Assessment and Plan (1) GI bleed Status: Resolved (2) Paroxysmal atrial fibrillation Status: Chronic (3) S/P TAVR (transcatheter aortic valve replacement) Status: Chronic (4) Essential (primary) hypertension Status: Chronic (5) Atherosclerotic heart disease of [place] coronary artery without angina pectoris Status: Acute Hospital Course Summary Disclaimer: The visit summary below is not to be considered part of the above Progress Note.
[2018-04-29] MEDS ORDERED: MORPHINE SULFATE 2mg INJECTION IVP ONE (17:59)
[2018-04-30] MEDS: NS 1,000 ML IV SCH ×2 (04:04→05:18)
[2018-04-30] MEDS: SUCRALFATE 1 GM TABLET PO SCH ×2 (05:57→11:55)
[2018-04-30] MEDS: LORATADINE 10 MG TABLET PO SCH (05:57)
[2018-04-30 07:49] VITALS: TEMP 97
[2018-04-30] MEDS: GUAIFENESIN 400MG TABLET PO SCH (09:12)
[2018-04-30] MEDS: FLUTICASONE NASAL SPRAY 50mcg EA NOSTRIL SCH (09:12)
[2018-04-30] MEDS: SALINE FLUSH 10ml SYRINGE IVF PRN (09:12)
[2018-04-30] MEDS: PANTOPRAZOLE 40 MG INJECTION IVP SCH (09:12)
[2018-04-30] MEDS: LACTOBACILLUS (15B cfu) CAPSULE PO SCH (09:12)
[2018-04-30] MEDS: SALINE 0.65% NASAL SPRAY 44 ML BOTTLE EA NOSTRIL SCH ×2 (09:13→12:00)
[2018-04-30 11:58] VITALS: BP 121/79; PULSE 74; RESP 18; O2SAT 98
--- NOTE | 2018-04-30 13:30 | Discharge Summary ---
Discharge Information Date of admission: 04/26/18 11:56 Anticipated date of discharge: 04/30/18 Attending Physician: Josesito Brar MD Primary care physician: Angelina Giron APRN Consults: 04/26/18 12:27 Dr [Physician Consult] [CONS] Routine Consulting Provider: Jessee Uriarte Reason For Exam: GI Bleed Ordering Provider has Notified Um Nurse: Yes 04/28/18 17:59 Consult to Anesthesiology [CONS] Routine Reason For Exam: Normal Procedure 04/29/18 11:24 Physician Consult [CONS] Routine Consulting Provider: Julian Morel Reason For Exam: A. fib, mechanical aortic valve, anticoagulation Ordering Provider has Notified Um Nurse: Yes - Discharge Diagnosis (1) GI bleed Status: Resolved Acute GI bleed (POA) Gastric ulcer, H. pylori negative Orthostatic hypotension, POA, resolved Acute on chronic anemia - hgb 10.2 on admission Atrial fib - unsuccessful cardioversion 2014 CAD CHF Hypertension History of aortic stenosis with mechanical valve replacement 2016 Mitral valve prolapse Obstructive sleep apnea -noncompliant with CPAP Constipation History of alcohol abuse - quit 1975 History of abdominal adhesions and small bowel obstruction - 2016 Obesity - Laboratory Labs: 04/30/18 04:34 04/29/18 12:56 Laboratory Tests 04/26/18 04/26/18 04/26/18 09:49 09:54 15:29 Hgb Hct INR 1.92 H Ur Collection Type Urine, void-cc/notcc Urine Color Yellow Urine Clarity Clear Urine pH 5.5 Ur Specific [place] 1.015 Urine Protein Negative Urine Glucose (UA) Negative Urine Ketones Negative Urine Occult Blood Trace-intact Urine Nitrate Negative Urine Bilirubin Negative Urine Urobilinogen 0.2 Ur Leukocyte Esterase Negative Urinalysis Comment Microscopic not ind. Stool Occult Blood Positive A 04/27/18 04/27/18 04/27/18 03:59 03:59 15:58 Hgb 10.7 L 11.0 L Hct 32.6 L 33.2 L INR 1.88 H Ur Collection Type Urine Color Urine Clarity Urine pH Ur Specific [place] Urine Protein Urine Glucose (UA) Urine Ketones Urine Occult Blood Urine Nitrate Urine Bilirubin Urine Urobilinogen Ur Leukocyte Esterase Urinalysis Comment Stool Occult Blood 04/28/18 04/28/18 04/28/18 04:05 04:05 17:10 Hgb 11.5 L Hct 34.0 L INR 1.72 H 1.55 H Ur Collection Type Urine Color Urine Clarity Urine pH Ur Specific [place] Urine Protein Urine Glucose (UA) Urine Ketones Urine Occult Blood Urine Nitrate Urine Bilirubin Urine Urobilinogen Ur Leukocyte Esterase Urinalysis Comment Stool Occult Blood 04/28/18 04/29/18 04/29/18 17:45 03:52 03:52 Hgb 11.9 L 11.7 L Hct 34.1 L 35.1 L INR 1.46 H Ur Collection Type Urine Color Urine Clarity Urine pH Ur Specific [place] Urine Protein Urine Glucose (UA) Urine Ketones Urine Occult Blood Urine Nitrate Urine Bilirubin Urine Urobilinogen Ur Leukocyte Esterase Urinalysis Comment Stool Occult Blood - Microbiology Microbiology 04/29/18 10:16 Gastric Biopsy Helicobacter pylori Rapid Urease - Final - Pathology Gastric biopsy performed on 04/29/2018 at the time of EGD, results pending. History of Present Illness HPI: Saravanan Stauffer is a very pleasant 83-year-old male who lives independently and follows with Angelina Giron APRN. He reports that on 04/23/18 he began to notice that his stools were very dark. He also reports increasing dizziness with standing which he states has been "going on for months" but has gotten worse over the past week. No recent falls or syncope. He presented to [facility] ED today, 04/26/18 for further evaluation. Upon arrival, he was found to have an irregularly irregular heart rate and rhythm. He has a known history of a-fib and is chronically anticoagulated on warfarin. He follows with Dr. Morel. He also has a history of aortic stenosis with valve replacement in 2017. Orthostatic vital signs in the ED were 142/78 supine, 149/79 sitting and 122/76 standing with complaints of dizziness and off balance. Labs revealed hemoglobin of 10.8 and were otherwise unremarkable. Most recent hemoglobin available was from 2016 and was 12.7. INR is slightly subtherapeutic at 1.92. Fecal hemoccult was positive. Dr. Leo was consulted and he was admitted to inpatient status for further evaluation, close hemodynamic monitoring and surgical evaluation. Objective Vital signs: Temperature 97.0 F 04/30/18 11:57 Pulse Rate 74 04/30/18 11:57 Respiratory Rate 18 04/30/18 11:57 Blood Pressure 121/79 04/30/18 11:57 Pulse Oximetry 98 04/30/18 11:57 Height/Weight/BMI: Height 1.83 m Weight 100.1 kg Body Mass Index 31.1 - Additional findings Additional findings: General: Alert, awake, oriented x3. Not in acute distress. Head: Pupils equal, round, reactive to light and accommodation. Extraocular movements intact. Neck: No elevation in JVP. No pharyngeal erythema noted. Chest: The patient does not use accessory muscles for breathing. Lungs: Breath sounds audible on auscultation bilateral lung day. No wheezing , no rhonchi, no crepitations, no crackles. No pleural rub. CVS: S1, S2 heard on auscultation. Normal rate and rhythm. No murmur, no S3/S4 gallops. Abdomen: Soft, minimal distention. Tenderness to palpation noted in suprapubic region, right lower quadrant. No rebound, no guarding. Bowel sounds appreciated on auscultation in all 4 quadrants. Skin: No rashes, no induration, no erythema. Capillary refill less than 4 seconds. Extremities: No evidence of pedal edema bilateral lower extremities. No calf tenderness bilaterally. Palpable dorsalis pedis and posterior tibial pulses bilateral lower extremities. Hospital Course This is a general summary of the patient's hospital course. For more details refer to the complete medical record. Hospital course: 04/26/18 Admit to inpatient status under the care of Dr. Leo. Consult Dr. Uriarte for further evaluation and potential endoscopic evaluation. Initiate Protonix 40mg IV BID for GI protection and treatment of suspected GI ulcer. Hemoccult positive. Monitor closely on telemetry. High fall risk given orthostatic hypotension. Monitor serial hemoglobins closely. Will transfuse as indicated. Continue home bisoprolol for a-fib. Patient follows with Dr. Morel. Will hold home ASA and Coumadin given GI bleed. INR 1.92 on admission. Will recheck in AM and hold off on reversal treatment at this time. 1/2 NS at 75cc/hr for hydration. Monitor for fluid overload. Significant history of constipation with prior small bowel obstruction. Continue bowel motivation. Recheck labs in AM to monitor blood counts, electrolytes and renal function. Full code per his request. Upon discharge, patient's care will return to Angelina Giron APRN. 04/27/18 Hemoglobin stable at 10.7 - not having stools since diet restricted. Recheck this afternoon. INR 1.88 - not able to proceed with EGD. Will restart clear liquids and give Vit K 1mg. Decrease IVF to 50cc/hr. Continue IV Protonix BID for GI protection. 04/28/2018 Hemoglobin 11.5 this morning. Hemoglobin ranging from 10.711.5 during hospital stay. Will monitor H&H. Patient had recurrent episode of black tarry stools noted last night. INR 1.72, will provide vitamin K 1 mg by mouth 1 and recheck INR this evening at 1700. Case discussed with Dr. Uriarte, recommendation for INR at approximately 1.5 prior to procedure. Patient restarted on clear liquid diet, plan for nothing by mouth after midnight with tentative plan for EGD/colonoscopy tomorrow by Dr. Uriarte. Continue IV fluids at 50 mL per hour. Continue IV Protonix 40 mg twice a day. 04/29/2018 Hemoglobin 11.7 this morning. Hemoglobin ranging from 10.711.9 during hospital stay. Will monitor H&H. INR 1.46 today when compared to 1.55 yesterday. Patient status post EGD performed by Dr. Uriarte this morning which showed evidence of gastric ulcer with red, inflamed margins. Awaiting results of CLOtest, biopsy. At this moment, patient opted to defer colonoscopy and wants to consider colonoscopy as an outpatient. Cardiology consult placed for recommendations regarding anticoagulation. Patient restarted on clear liquid diet. Plan to advance to low salt, bland, Low irritant diet as tolerated. Continue IV fluids at 50 mL per hour. Continue IV Protonix 40 mg twice a day. 04/30/2018discharge CLOtest for H. pylori negative. Gastric biopsy results from EGD performed 04/29/2018, results pending. Hemoglobin stable at 11.1. Patient tolerating soft oral diet. No reported abdominal pain, no nausea, no vomiting. Patient ambulating independently around unit, monitored by nursing staff. Cardiology recommendation to hold Coumadin for one month and then follow up for Dr. Morel office to restart Coumadin. Case discussed with general surgeon, Dr. Uriarte, who plans to follow up patient in 2 months for possible repeat EGD. Time spent with patient: greater than 35 minutes Resuscitation Status: Full Code Discharge Plan - Discharge Disposition Discharge Date: 04/30/18 Disposition: 01 Discharged Home, Self-Care *Condition: Stable Reason For Visit (Visit label in EMR): GI Bleed, Orthostasis - Discharge Medications *Discharge Medications: New Pantoprazole Tab [Protonix Tab] 40 mg PO NOTE #44 tab Sucralfate [Carafate] 1 gm PO ACHS #120 tab Continue Lactobacillus Acidophilus [Probiotic] 1 cap PO DAILY PEG 3350 17gm PACKET [Miralax] 17 gm PO PRN Bisoprolol [Zebeta] 5 mg PO HS Docusate Sodium [Stool Softener] 200 mg PO PRN Discontinued Warfarin Sodium 3 mg PO DAILY #0 aspirin 81 mg tablet,delayed release 81 mg PO DAILY tab - Discharge Packet/Instructions *Diet: Cardiac, soft, bland diet. Avoid spicy, greasy, fatty food. Avoid citrus fruits and juices. *Activity: As tolerated *Pain Management/Treatment: Tylenol [id number] 500 mg by mouth every 6 hours as needed. *Wound Care: Not applicable *Expected Signs/Symptoms: Continued symptomatic improvement. *Notify Physician if: Fever, chills, increased shortness of breath, intractable nausea, vomiting, abdominal pain, chest pain, palpitations, dizziness, blurred vision, diarrhea, fatigue, weakness, flank pain, dysuria, black tarry stools, bright red blood per rectum or any other concerning findings. *During Business Hours Contact: Your PCP, Angelina Giron APRN *After Business Hours Contact: Call [facility] at [phone] and ask that the on-call physician be paged *Pending Lab/Results: Follow up w/your PCP (gastric biopsy results) - Referrals/Follow Up *Referrals/Follow Up: Angelina Giron APRN [Primary Care Provider] - 1 Week Julian Morel MD [Physician] - 1 Month (Coumadin, aspirin held due to GI bleed. To evaluate regarding restarting medications) Jessee Uriarte MD [Physician] - 2 Months (Repeat EGD with evidence of gastric ulcer) - Patient Handouts - Dismissal Complete Discharge Instructions are:: Complete Physician Narrative - Narrative Attestation Narrative: Date: 04/30/18 Time: [id number]
--- NOTE | 2018-04-30 14:44 | Progress Note ---
DATE 04/30/2018 HISTORY The patient is doing well at this time. He is not having any abdominal pain. He is anticipating discharge from the hospital today. PHYSICAL EXAMINATION VITAL SIGNS: Temperature is 97 degrees Fahrenheit oral. Pulse is 74. Respiratory rate is 18. Blood pressure is 121/79. Oxygen saturation is 98% on room air. ABDOMEN: The abdomen is soft and nontender. LABORATORY DATA Hemoglobin is 11.1. Hematocrit is 34. USAMA test study from the esophagogastroduodenoscopy procedure yesterday is negative. IMPRESSION 1. Gastric ulcer. 2. Recent melena which is thought to probably be due to bleeding from the gastric ulcer. 3. Recent anticoagulation with Coumadin. 4. Sigmoid colon diverticulosis. 5. Personal history of rectal adenocarcinoma. PLAN 1. I agree with the plans to treat the patient with Protonix 40 mg p.o. b.i.d. for one week and then Protonix 40 mg daily in addition to Carafate 1 gram p.o. q.i.d. one hour before meals and at bedtime. 2. Await pathology report on biopsies of the gastric ulcer to be absolutely sure that this is a benign gastric ulcer. 3. I have talked with the patient several times during this hospitalization about the need for followup colonoscopy since he does have the personal history of rectal adenocarcinoma and he has not had a colonoscopy since 2010 when he underwent the transanal excision of the rectal adenocarcinoma. I have offered to do this colonoscopy during this hospitalization. The patient has declined to have the colonoscopy performed during this hospitalization. He does decline an offer to be scheduled for colonoscopy after the hospitalization. This has been discussed with the patient during this hospitalization and he is reluctant to have any future colonoscopy procedures. 4. I did talk with the patient about undergoing a followup esophagogastroduodenoscopy procedure in a couple of months to make sure that the gastric ulcer has completely healed. The patient does indicate at this time that he believes he will be willing to do that. 5. Dr. Morel has been consulted regarding anticoagulation of the patient and the current plan is to hold the Coumadin for one month while the ulcer heals and then resume the Coumadin a month from now. LEOBARDO
[2018-04-30] MEDS ORDERED: PANTOPRAZOLE 40 MG TABLET PO SCH (17:00)
== END 2018-04-30 15:35 | disposition home or self-care (01) | DRG 379 ==
LOC: ED 09:11 → EDHOLD 11:56 → SUATTDRO 11:56 → MED 12:16
PROVIDERS: ADMIT Hospitalist; ATTEND Internal Medicine
PROC: END.EGD (2018-04-29 13:10)